=== PATIENT | female | born 1940 | race Caucasian/White ===

== ENCOUNTER → 2017-07-03 | Outpatient (CLI) | payer MEDICARE ==
--- NOTE | 2017-07-03 13:40 | MM ---
Reason for exam: additional evaluation requested from prior study. Last mammogram was performed 10 months ago. History: Patient is postmenopausal and has history of breast cancer at age 76. Family history of premenopausal breast cancer in mother. Malignant MG pre op needle loc LT of the left breast, September 13, 2016. Malignant US biopsy breast VAD LT of the left breast, August 29, 2016. Benign cyst aspiration of the right breast. Physical Findings: Nurse did not find any significant physical abnormalities on exam. MG 3D Diag Mammo W/Cad CASSIE Bilateral CC and MLO view(s) were taken. Prior study comparison: August 29, 2016, left breast MG diagnostic mammo LT wo CAD. August 16, 2016, left breast US breast workup limited LT. August 08, 2016, bilateral MG 3d screening mammo w/cad. October 14, 2014, bilateral MG screening mammo w CAD. September 13, 2013, bilateral digital screening mammo w/CAD. September 11, 2012, bilateral digital screening mammo w/CAD. There are scattered fibroglandular densities. Post surgical and post therapy changes in the left breast. No significant new findings when compared with previous films. These results were verbally communicated with the patient and result sheet given to the patient on 07/03/17. ASSESSMENT: Probably benign, BI-RAD 3 RECOMMENDATION: Follow-up diagnostic mammogram of the left breast in 6 months.
== END | disposition home or self-care (01) ==
LOC: RADMAMWWP 12:35
PROVIDERS: ATTEND Radiology Diagnostic Radiology
DX: Z08 Encounter for follow-up examination after completed treatment for malignant neoplasm (principal); Z85.3 Personal history of malignant neoplasm of breast
CPT/HCPCS: G0204; G0279

== ENCOUNTER → 2018-05-29 | Outpatient (CLI) | payer MEDICARE ==
--- NOTE | 2018-05-29 16:04 | MM ---
Reason for exam: additional evaluation requested from prior study. Last mammogram was performed 11 months ago. History: Patient is postmenopausal and has history of breast cancer at age 76. Family history of premenopausal breast cancer in mother. Malignant MG pre op needle loc LT of the left breast, September 13, 2016. Malignant US biopsy breast VAD LT of the left breast, August 29, 2016. Benign cyst aspiration of the right breast. Physical Findings: Nurse did not find any significant physical abnormalities on exam. MG 3D Diag Mammo W/Cad CASSIE Bilateral CC and MLO view(s) were taken. XCCM view(s) were taken of the right breast. Prior study comparison: July 03, 2017, bilateral MG 3d diag mammo w/cad CASSIE. August 29, 2016, left breast MG diagnostic mammo LT wo CAD. The breast tissue is heterogeneously dense. This may lower the sensitivity of mammography. Status post-op changes left breast. No significant new finding since prior exam. These results were verbally communicated with the patient and result sheet given to the patient on 05/29/18. ASSESSMENT: Benign, BI-RAD 2 RECOMMENDATION: Follow-up diagnostic mammogram of both breasts in 1 year.
== END | disposition home or self-care (01) ==
LOC: RADMAMWWP 14:44
PROVIDERS: ATTEND Radiology Diagnostic Radiology
DX: C50.912 Malignant neoplasm of unspecified site of left female breast (principal)
CPT/HCPCS: 77066; G0279; 77062

== ENCOUNTER → 2019-06-03 | Outpatient (CLI) | payer MEDICARE ==
--- NOTE | 2019-06-03 14:06 | MM ---
Reason for exam: additional evaluation requested from prior study. Last mammogram was performed 1 year ago. History: Patient is postmenopausal and has history of breast cancer at age 76. Family history of premenopausal breast cancer in mother. Malignant MG pre op needle loc LT of the left breast, September 13, 2016. Malignant US biopsy breast VAD LT of the left breast, August 29, 2016. Lumpectomy of the left breast, 2016. Radiation therapy of the left breast, 2016. Benign cyst aspiration of the right breast. Physical Findings: Nurse did not find any significant physical abnormalities on exam. MG 3D Diag Mammo W/Cad CASSIE Bilateral CC and MLO view(s) were taken. Prior study comparison: May 29, 2018, bilateral MG 3d diag mammo w/cad CASSIE. July 03, 2017, bilateral MG 3d diag mammo w/cad CASSIE. There are scattered fibroglandular densities. There is chronic nodularity bilaterally. Post surgical and post therapy change left breast. No significant new findings when compared with previous films. These results were verbally communicated with the patient and result sheet given to the patient on 06/03/19. ASSESSMENT: Benign, BI-RAD 2 RECOMMENDATION: Follow-up diagnostic mammogram of both breasts in 1 year.
--- NOTE | 2019-06-03 18:45 | XR ---
EXAMINATION TYPE: XR cervical spine comp DATE OF EXAM: 06/03/2019 COMPARISON: None HISTORY: 78 year-old female chronic pain TECHNIQUE: 5 views FINDINGS: Multilevel uncovertebral joint and facet arthropathy. Changes result in moderate bony neuroforaminal narrowing mid to lower cervical spine on the left and mild to moderate mid cervical spine on the righ t. Mild multilevel endplate spondylosis. Alignment is maintained. Normal odontoid view. Degenerative changes at the C1 dens articulation. No prevertebral soft tissue swelling. IMPRESSION: Moderate facet and uncovertebral joint arthropathy. Mild multilevel endplate spondylosis.
--- NOTE | 2019-06-03 18:47 | XR ---
EXAMINATION TYPE: XR shoulder complete BILAT DATE OF EXAM: 06/03/2019 COMPARISON: NONE HISTORY: 78 year-old female chronic pain TECHNIQUE: 3 views each side FINDINGS: Moderate degenerative joint space narrowing left AC joint and [id number] on the right with bila teral marginal spurring. On the right, there is prominent bony spurring and irregularity of the greater tuberosity with narrow ing of the subacromial space during abduction. No acute fracture, subluxation, or dislocation. Lesser degree of bony irregularity at the left greater tuberosity. No acute fracture, subluxation, di slocation. IMPRESSION: 1. 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 2. Right greater than left chronic rotator cuff tendinopathy. Narrowing of the right subacromial spac e during abduction may reflect underlying rotator cuff tear.
== END | disposition home or self-care (01) ==
LOC: RADMAMWWP 12:33
PROVIDERS: ATTEND Radiology Diagnostic Radiology
DX: M46.92 Unspecified inflammatory spondylopathy, cervical region (principal); M47.22 Other spondylosis with radiculopathy, cervical region; M19.012 Primary osteoarthritis, left shoulder; M19.011 Primary osteoarthritis, right shoulder; M25.811 Other specified joint disorders, right shoulder; R92.8 Other abnormal and inconclusive findings on diagnostic imaging of breast
CPT/HCPCS: 73030; 72050; 77066; G0279; 77062

== ENCOUNTER → 2020-08-10 | Outpatient (CLI) | payer MEDICARE ==
--- NOTE | 2020-08-10 18:42 | BD ---
EXAMINATION TYPE: Axial Bone Density DATE OF EXAM: 08/10/2020 COMPARISON: NONE CLINICAL HISTORY: Postmenopausal screening Height: 5 FT 2 IN Weight: 160 FRAX RISK QUESTIONS: Alcohol (3 or more units per day): NO Family History (Parent hip fracture): NO Glucocorticoids (More than 3mos): NO (Ex: prednisone, prednisolone, methylprednisolone, dexamethasone, and hydrocortisone). History of Fracture in Adulthood: NO Secondary Osteoporosis: 1. Type 1 Diabetes: NO 2. Hyperthyroidism: NO 3. Menopause before 45: UNSURE 4. Malnutrition: NO 5. Chronic liver disease: NO Rheumatoid Arthritis: NO Current Tobacco Use: NO RISK FACTORS HISTORY OF: Family History of Osteoporosis: NO Active: YES Diet low in dairy products/other sources of calcium: NO Postmenopausal woman: UNSURE Take estrogen and/or progesterone medications: NO Lost more than 2 inches in height since high school: NO Poor Health: NO MEDICATIONS: Additional Medications: BLOOD PRESSURE MEDS, H2O PILL, XANAX Additional History: EXAM MEASUREMENTS: Bone mineral densitometry was performed using the Easy Tem[employer] System. Bone mineral density as measured about the Lumbar spine is: ----- L1-L4(G/cm2): 1.204 T Score Values are as follows: ----- L2: -0.2 ----- L3: 0.3 ----- L4: 0.1 ----- L1-L4: 0.2 Bone mineral density has: DECREASED -0.4 % since study of: 2015 Bone mineral density about the R hip (g/cm2): 0.725 Bone mineral density about the L hip (g/cm2): 0.819 T Score values are as follows: -----R Neck: -2.3 -----L Neck: -1.6 -----R Total: -1.4 -----L Total: -0.5 Bone mineral density has: DECREASED -0.6 % since study of: 2015 IMPRESSION: Osteopenia (T Score between -2.5 and -1). There is slightly increased risk of fracture and the patient may be considered for treatment. Re-Screen 2-5 years. NOTE: T-SCORE=SD OF THE YOUNG ADULT MEAN.
--- NOTE | 2020-08-12 10:27 | MM ---
Reason for exam: screening (asymptomatic). Last mammogram was performed 1 year and 2 months ago. History: Patient is postmenopausal and has history of breast cancer at age 76. Family history of premenopausal breast cancer in mother. Malignant MG pre op needle loc LT of the left breast, September 13, 2016. Malignant US biopsy breast VAD LT of the left breast, August 29, 2016. Lumpectomy of the left breast, 2016. Radiation therapy of the left breast, 2016. Benign cyst aspiration of the right breast. Physical Findings: A clinical breast exam by your physician is recommended on an annual basis and results should be correlated with mammographic findings. MG 3D Screening Mammo W/Cad Bilateral CC and MLO view(s) were taken. Prior study comparison: June 03, 2019, bilateral MG 3d diag mammo w/cad CASSIE. May 29, 2018, bilateral MG 3d diag mammo w/cad CASSIE. The breast tissue is heterogeneously dense. This may lower the sensitivity of mammography. Finding: There are stable clips and architectural distortion in the middle, central position of the left breast consistent with known excisional changes. There is a chronic nodularity in the right breast. Asymmetric breast tissue right middle posterior outer aspect, stable. There is no discrete abnormality. ASSESSMENT: Benign, BI-RAD 2 RECOMMENDATION: Routine screening mammogram of both breasts in 1 year.
== END | disposition home or self-care (01) ==
LOC: RADMAMWWP 13:15
PROVIDERS: ATTEND Internal Medicine Geriatric Medicine
DX: Z12.31 Encounter for screening mammogram for malignant neoplasm of breast (principal); M81.0 Age-related osteoporosis without current pathological fracture; M85.80 Other specified disorders of bone density and structure, unspecified site
CPT/HCPCS: 77063; 77067; 77080

== ENCOUNTER → 2021-03-10 | Outpatient (CLI) | payer MEDICARE ==
--- NOTE | 2021-03-10 16:26 | XR ---
EXAMINATION TYPE: XR lumbar spine 2 or 3V DATE OF EXAM: 03/10/2021 CLINICAL HISTORY: Sciatica, right-sided lumbar SI joint pain for one month TECHNIQUE: Frontal, lateral, and oblique images of the lumbar spine are obtained. COMPARISON: 11/22/2012 FINDINGS: Osteopenia. 5 nonrib-bearing lumbar-type vertebral bodies. Sacroiliac joints are symmetric. Severe Atherosclerotic calcification of the abdominal aorta. There is accentuated lordosis of the levi mbar spine. Multiple tiny anterior osteophytes. No significant loss of vertebral body height. No sign ificant spondylolisthesis. Severe degenerative changes of the facets. IMPRESSION: 1. No significant loss of vertebral body height to suggest acute compression fracture. Multilevel deg enerative changes including facet sclerosis. Osteopenia.
== END | disposition home or self-care (01) ==
LOC: RADXRMAIN 14:19
PROVIDERS: ATTEND Internal Medicine Geriatric Medicine
DX: M47.816 Spondylosis without myelopathy or radiculopathy, lumbar region (principal); M85.80 Other specified disorders of bone density and structure, unspecified site
CPT/HCPCS: 72100

== ENCOUNTER → 2022-02-16 | Outpatient (CLI) | payer MEDICARE ==
--- NOTE | 2022-02-16 19:52 | XR ---
EXAMINATION TYPE: XR Hip Bilateral Complete DATE OF EXAM: 02/16/2022 COMPARISON: None HISTORY: Pain left hip TECHNIQUE: Bilateral hips 2 views each. FINDINGS: Femoral heads articulate with the acetabulum. Some mild narrowing of the left hip joint spa ce may be present. No acute fractures are evident. No dislocations. IMPRESSION: 1. Mild degenerative changes left hip
== END | disposition home or self-care (01) ==
LOC: RADXRMAIN 14:02
PROVIDERS: ATTEND Internal Medicine Geriatric Medicine
DX: M16.12 Unilateral primary osteoarthritis, left hip (principal)
CPT/HCPCS: 73521

== ENCOUNTER 2022-02-17 08:47 | Inpatient (IN) | payer MEDICARE ==
[2022-02-17] MEDS ORDERED: SODIUM CHLORIDE 0.9% 1,000 ML IV STA (09:22)
[2022-02-17] MEDS ORDERED: ONDANSETRON 4 MG/2 ML VIAL IVP STA (09:24)
--- NOTE | 2022-02-17 09:27 | ED ---
General Adult HPI - General Chief complaint: Nausea/Vomiting/Diarrhea Stated complaint: Accidental Overdose Codeine Time Seen by Provider: 02/17/22 08:55 Source: patient, RN notes reviewed, old records reviewed Mode of arrival: EMS Limitations: no limitations - History of Present Illness Initial comments: This is an 81-year-old female presents emergency Department with a past medical history significant for high blood pressure. Patient was also given some Tylenol with Codeine yesterday because of some hip pain she took her first dose at 4:00 in the morning and then didn't feel well she called her grand[facility] and she was unresponsive and her states she was unresponsive for a fair amount of time and EMS came and brought her to the emergency department. EMS stated they did give her Narcan it seemed to bring her around however when I was in the room she became very nauseated her heart rate slowed down and she passed out again. Patient was unresponsive for about 30 seconds and she immediately came around after that and was alert and oriented. Patient denies any chest pain or abdominal pain patient denies any palpitations per patient denies any recent fever chills or cough. Patient denies any back pain. - Related Data Home Medications Medication Instructions Recorded Confirmed Multivit-Min/FA/Lycopen/Lutein 1 tab PO DAILY 09/12/15 02/17/22 [Centrum Silver Tablet] Omeprazole [PriLOSEC] 20 mg PO AC-BRKFST 09/12/15 02/17/22 Metoprolol Tartrate [Lopressor] 25 mg PO TID 05/24/16 02/17/22 ALPRAZolam [Xanax] 0.25 mg PO TID 02/17/22 02/17/22 Acetaminophen-Codeine 300-30mg 1 tab PO Q6H PRN 02/17/22 02/17/22 [Tylenol w/codeine #3] Atorvastatin [Lipitor] 10 mg PO DAILY 02/17/22 02/17/22 Baclofen [Lioresal] 10 mg PO BID PRN 02/17/22 02/17/22 Furosemide [Lasix] 40 mg PO DAILY 02/17/22 02/17/22 Allergies Allergy/AdvReac Type Severity Reaction Status Date / Time codeine AdvReac Vomiting Verified 02/17/22 12:04 Review of Systems ROS Statement: Those systems with pertinent positive or pertinent negative responses have been documented in the HPI. ROS Other: All systems not noted in ROS Statement are negative. Past Medical History Past Medical History: Cancer, Fibromyalgia, GERD/Reflux, Hypertension, Os teoarthritis (OA) Additional Past Medical History / Comment(s): varicose veins, breast cancer History of Any Multi-Drug Resistant Organisms: None Reported Past Surgical History: Appendectomy, Hysterectomy, Tonsillectomy Additional Past Surgical History / Comment(s): benign TUMOR FROM STOMACH REMOVE D. misty cataracts Past Anesthesia/Blood Transfusion Reactions: No Reported Reaction Past Psychological History: Anxiety Smoking Status: Former smoker Past Alcohol Use History: None Reported Past Drug Use History: None Reported - Past Family History Mother Family Medical History: Cancer Son(s) Family Medical History: Cancer General Exam - General Exam Comments Initial Comments: GENERAL: Patient is well-developed and well-nourished. Patient is nontoxic and well- hydrated and is in mild distress. ENT: Neck is soft and supple. No significant lymphadenopathy is noted. Oropharynx is clear. Moist mucous membranes. Neck has full range of motion without eliciting any pain. EYES: The sclera were anicteric and conjunctiva were pink and moist. Extraocular movements were intact and pupils were equal round and reactive to light. Eyelids were unremarkable. PULMONARY: Unlabored respirations. Good breath sounds bilaterally. No audible rales rhonchi or wheezing was noted. CARDIOVASCULAR: There is a regular rate and rhythm without any murmurs gallops or rubs. ABDOMEN: Soft and nontender with normal bowel sounds. SKIN: Skin is clear with no lesions or rashes and otherwise unremarkable. NEUROLOGIC: Patient is alert and oriented x3. Cranial nerves II through XII are grossly intact. Motor and sensory are also intact. Normal speech, volume and content. Symmetrical smile. MUSCULOSKELETAL: Normal extremities with adequate strength and full range of motion. LYMPHATICS: No significant lymphadenopathy is noted PSYCHIATRIC: Normal psychiatric evaluation. Limitations: no limitations Course Vital Signs 02/17/22 02/17/22 02/17/22 08:53 09:41 10:00 Temperature 98.2 F Pulse Rate 65 55 L 87 Respiratory 15 15 16 Rate Blood Pressure 192/75 154/62 154/125 O2 Sat by Pulse 95 98 96 Oximetry 02/17/22 02/17/22 02/17/22 11:00 11:10 12:28 Temperature Pulse Rate 77 75 69 Respiratory 16 20 Rate Blood Pressure 178/90 118/78 176/79 O2 Sat by Pulse 96 98 Oximetry Medical Decision Making - Medical Decision Making My was in the room patient vasovagal and heart rate went down into the 20s. Patient's EKG shows sinus rhythm at 64 bpm AR interval is 181 QRS is 96 QT interval 429 QTC is 439. Patient's EKG shows no ST segment elevation or depression. Patient had multiple episodes in the emergency department where she had at least a 10 second episode of asystole and then slowly her heart rate would speed up and come back to the 70s. At one point she took down into the 20s. I gave her atropine and immediately responded. I spoke with cardiology he agreed to consult on the patient. I spoke with Dr. Rodriguez he agreed to admit the patient admitted the patient wrote admitting orders. - Lab Data Result diagrams: 02/17/22 09:29 02/17/22 09:29 Lab Results 02/17/22 02/17/22 02/17/22 Range/Units 09:29 09:29 09:29 WBC 9.1 (3.8-10.6) k/uL RBC 3.96 (3.80-5.40) m/uL Hgb 12.7 (11.4-16.0) gm/dL Hct 39.1 (34.0-46.0) % MCV 98.7 (80.0-100.0) fL MCH 32.2 (25.0-35.0) pg MCHC 32.6 (31.0-37.0) g/dL RDW 12.0 (11.5-15.5) % Plt Count 236 (150-450) k/uL MPV 8.1 Neutrophils % 74 % Lymphocytes % 17 % Monocytes % 5 % Eosinophils % 1 % Basophils % 1 % Neutrophils # 6.8 (1.3-7.7) k/uL Lymphocytes # 1.5 (1.0-4.8) k/uL Monocytes # 0.5 (0-1.0) k/uL Eosinophils # 0.1 (0-0.7) k/uL Basophils # 0.1 (0-0.2) k/uL PT 9.9 (9.0-12.0) sec INR 0.9 (<1.2) APTT 23.0 (22.0-30.0) sec D-Dimer 0.36 (<0.60) mg/L FEU Sodium 139 (137-145) mmol/L Potassium 3.6 (3.5-5.1) mmol/L Chloride 104 (98-107) mmol/L Carbon Dioxide 27 (22-30) mmol/L Anion Gap 8 mmol/L BUN 19 H (7-17) mg/dL Creatinine 0.81 (0.52-1.04) mg/dL Est GFR (CKD-EPI)AfAm 80 (>60 ml/min/1.73 sqM) Est GFR (CKD-EPI)NonAf 69 (>60 ml/min/1.73 sqM) Glucose 154 H (74-99) mg/dL Calcium 8.8 (8.4-10.2) mg/dL Magnesium 1.9 (1.6-2.3) mg/dL Total Bilirubin 0.7 (0.2-1.3) mg/dL AST 37 H (14-36) U/L ALT 26 (4-34) U/L Alkaline Phosphatase 67 (38-126) U/L Troponin I (0.000-0.034) ng/mL NT-Pro-B Natriuret Pep pg/mL Total Protein 7.2 (6.3-8.2) g/dL Albumin 4.3 (3.5-5.0) g/dL 02/17/22 02/17/22 Range/Units 09:29 09:29 WBC (3.8-10.6) k/uL RBC (3.80-5.40) m/uL Hgb (11.4-16.0) gm/dL Hct (34.0-46.0) % MCV (80.0-100.0) fL MCH (25.0-35.0) pg MCHC (31.0-37.0) g/dL RDW (11.5-15.5) % Plt Count (150-450) k/uL MPV Neutrophils % % Lymphocytes % % Monocytes % % Eosinophils % % Basophils % % Neutrophils # (1.3-7.7) k/uL Lymphocytes # (1.0-4.8) k/uL Monocytes # (0-1.0) k/uL Eosinophils # (0-0.7) k/uL Basophils # (0-0.2) k/uL PT (9.0-12.0) sec INR (<1.2) APTT (22.0-30.0) sec D-Dimer (<0.60) mg/L FEU Sodium (137-145) mmol/L Potassium (3.5-5.1) mmol/L Chloride (98-107) mmol/L Carbon Dioxide (22-30) mmol/L Anion Gap mmol/L BUN (7-17) mg/dL Creatinine (0.52-1.04) mg/dL Est GFR (CKD-EPI)AfAm (>60 ml/min/1.73 sqM) Est GFR (CKD-EPI)NonAf (>60 ml/min/1.73 sqM) Glucose (74-99) mg/dL Calcium (8.4-10.2) mg/dL Magnesium (1.6-2.3) mg/dL Total Bilirubin (0.2-1.3) mg/dL AST (14-36) U/L ALT (4-34) U/L Alkaline Phosphatase (38-126) U/L Troponin I <0.012 (0.000-0.034) ng/mL NT-Pro-B Natriuret Pep 85 pg/mL Total Protein (6.3-8.2) g/dL Albumin (3.5-5.0) g/dL Critical Care Time Critical Care Time: Yes Total Critical Care Time: 35 Disposition Clinical Impression: Bradycardia, Asystole, Nausea & vomiting, Urinary retention Disposition: ADMITTED IP TO THIS [facility] Time of Disposition: 11:42
[2022-02-17 09:44] LABS: Basophils # (A) 0.1 k/uL (0-0.2); Basophils % (A) 1 %; Eosinophils # (A) 0.1 k/uL (0-0.7); Eosinophils % (A) 1 %; HCT 39.1 % (34.0-46.0); HGB 12.7 gm/dL (11.4-16.0); Lymphocytes # (A) 1.5 k/uL (1.0-4.8); Lymphocytes % (A) 17 %; MCH 32.2 pg (25.0-35.0); MCHC 32.6 g/dL (31.0-37.0); MCV 98.7 fL (80.0-100.0); Mean Platelet Volume 8.1; Monocytes # (A) 0.5 k/uL (0-1.0); Monocytes % (A) 5 %; Neutrophils # (A) 6.8 k/uL (1.3-7.7); Neutrophils % (A) 74 %; Platelet Count 236 k/uL (150-450); RBC 3.96 m/uL (3.80-5.40); WBC 9.1 k/uL (3.8-10.6)
[2022-02-17] MEDS ORDERED: ATROPINE SULFATE 0.1 MG/ML 10ML SYRINGE IV STA (09:59)
[2022-02-17 10:03] LABS: INR 0.9 (<1.2); Prothrombin Time 9.9 sec (9.0-12.0)
[2022-02-17 10:06] LABS: Albumin 4.3 g/dL (3.5-5.0); Calcium 8.8 mg/dL (8.4-10.2); Magnesium 1.9 mg/dL (1.6-2.3); Potassium 3.6 mmol/L (3.5-5.1); Total Bilirubin 0.7 mg/dL (0.2-1.3); Total Protein 7.2 g/dL (6.3-8.2)
--- NOTE | 2022-02-17 11:21 | XR ---
EXAMINATION TYPE: XR chest 1V portable DATE OF EXAM: 02/17/2022 COMPARISON: Chest x-ray January 16, 2016 HISTORY: Shortness of breath. TECHNIQUE: Single AP portable frontal upright view of the chest is obtained. FINDINGS: There is chronic parenchymal change bilaterally without suspicious focal air space opacity , pleural effusion, or pneumothorax seen. The cardiac silhouette size is stable and mildly enlarged with atherosclerotic change thoracic aorta. The osseous structures remain demineralized. IMPRESSION: Chronic changes and mild cardiomegaly without acute pulmonary process.
[2022-02-17] MEDS ORDERED: NITROGLYCERIN SL TABS 0.4 MG TAB SUBLINGUAL PRN (11:44)
[2022-02-17] MEDS ORDERED: ALPRAZolam 0.25 MG TAB PO PRN (11:46)
[2022-02-17 13:02] LABS: Appearance,Urine Clear (Clear); Bilirubin,Urine Negative (Negative); Blood,Urine Negative (Negative); Color,Urine Light Yellow; Glucose,Urine (UA) Negative (Negative); Ketones,Urine Negative (Negative); Leukocyte Esterase,Urine Negative (Negative); Nitrite,Urine Negative (Negative); Protein,Urine Negative (Negative); Specific Gravity,Urine 1.007 (1.001-1.035); Urobilinogen,Urine <2.0 mg/dL (<2.0)
[2022-02-17] MEDS ORDERED: hydrALAZINE HCL 25 MG TAB PO PRN (19:36)
--- NOTE | 2022-02-17 19:46 | P.HPIM ---
History of Present Illness H&P Date: 02/17/22 Chief Complaint: unresponsive and asystole HISTORY OF PRESENT ILLNESS 81-year-old female one of my office patient with known for long time with past medical history of breast cancer is known to have history of hypertension and atherosclerotic heart disease also known to have history of mild anxiety attack and severe GERD who was in the office yesterday for severe right hip pain was diagnosed with high suspicion of avascular necrosis, patient apparently was started on a smaller dose of Tylenol 3 along with baclofen no injection was done. Patient had called her granddaughter this morning and was more slurred not feeling well at the time and apparently she drop her phone call [facility] through. She dialed the phone again in 20 minutes and was not feeling well at the time. The granddaughter drove to see her 1 found her unresponsive she called 911 and EMS came in and work on patient for short period of time then decided to transfer her to the emergency room. On the way patient had nausea and vomited one time she was giving Narcan on the way to the emergency room apparently had one episode of asystole last for a few seconds. Was seen and evaluated the emergency department laboratory value showed normal CK with troponin, normal CBC CMP with normal d-dimer as well. Her chest x-ray showed chronic changes and mild cardiomegaly without any acute process. In between her episodes are EKG showed sinus rhythm with nonspecific abnormality. The patient had another episode of asystole and was giving some atropine and admitted to the hospital did not require any electric shock or any resuscitation. REVIEW OF SYSTEMS Constitutional: No fever, no chills, no night sweats. No weight change. No weakness, fatigue or lethargy. No daytime sleepiness. EENT: No headache. No blurred vision or double vision, no loss of vision. No loss of Hearing, no ringing in the ears, no dizziness. No nasal drainage or congestion. No epistaxis. No sore throat. Lungs: No shortness of breath, cough, no sputum production. No wheezing. Cardiovascular: Had slight dyspnea and shortness of breath arrhythmia asystole and mild lightheadedness and dizziness. Abdominal: No abdominal pain. No nausea, vomiting. No diarrhea. No constipation. No bloody or tarry stools.. No loss of appetite. Genitourinary: No dysuria, increased frequency, urgency. No urinary retention. Musculoskeletal: No myalgias. No muscle weakness, no gait dysfunction, no frequent falls. No back pain. No neck pain. Still have lumbar spine pain a long with right hip pain. Integumentary: No wounds, no lesions. No rash or pruritus. No unusual br uising. No change in hair or nails. Neurologic: Loss of consciousness with no syncope no seizure activity. Psychiatric: No depression. No anxiety. No mood swings. Endocrine: No abnormal blood sugars. No weight change. No excessive sweating or thirst. No cold intolerance. SOCIAL HISTORY FAMILY HISTORY PHYSICAL EXAMINATION Gen: This is a well-developed laying in bed in no acute respiratory distress. HEENT: Head is atraumatic, normocephalic. Pupils equal, round. Sclerae is anicteric. NECK: Supple. No JVD. No lymphadenopathy. No thyromegaly. LUNGS: Clear to auscultation. No wheezes or rhonchi. No intercostal retractions. HEART: Regular rate and rhythm. No murmur. ABDOMEN: Soft. Bowel sounds are present. No masses. No tenderness. EXTREMITIES: No pedal edema. No calf tenderness. Slight discomfort in the right hip area. NEUROLOGICAL: Patient is awake, alert and oriented x3. Cranial nerves 2 through 12 are grossly intact. Back: Slight discomfort the lumbar spine area with significant scoliosis and kyphosis. ASSESSMENT AND PLAN 1. Unresponsive and asystole: Patient was giving atropine, was giving Narcan as well no further episodes she had total of 3 episode of asystole not totally clear etiology could be reaction to codeine at this point which is on any medications is taking found to be slight extreme at the time. Will DC medication completely, patient will be watch on telemetry monitor we'll consult cardiology she might require some sort of short and supervisor intermediates heart monitor for better view whether patient will require pacemaker not knowing that she is on beta yaya for her blood pressure which was an extremely difficult decision at the time which is only taking had work patient did not do well with multiple products with calcium channel yaya, Reagan, ARB and clonidine. 2 severe arrhythmia and asystole: Patient might require pacemaker will be study limited more carefully at this point, cardiology consultation be done, echocardiogram will be done and try to stop her beta yaya for now. 3 hypertension: Patient has been on metoprolol titrate 25 g 3 times a day which has worked for her better than anything else the past patient would not be able to take metoprolol for the next 24-48 hours. 4 hyperlipidemia: Has been on Lipitor 10 mg a day. 5 chronic edema: Has been on Lasix 40 mg daily. 6 severe GERD: Has been on Prilosec. 7 history of breast cancer: Has been in remission at this point. 8 severe lower back pain and hip pain, her x-ray of the hip showed mild arthritis only, thoracic and lumbar x-ray will be done. 9 GI prophylaxis: Patient will be on Pepcid. 10 DVT prophylaxis: Patient will have early mobilization and knee-high CHARLES hose. CODE STATUS: Full code. Patient will be admitted to the hospital for a minimum of 2 night stay. 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 misty cataracts Past Anesthesia/Blood Transfusion Reactions: No Reported Reaction Past Psychological History: Anxiety Smoking Status: Former smoker Past Alcohol Use History: None Reported Past Drug Use History: None Reported - Past Family History Mother Family Medical History: Cancer Son(s) Family Medical History: Cancer Medications and Allergies Home Medications Medication Instructions Recorded Confirmed Type Multivit-Min/FA/Lycopen/Lutein 1 tab PO DAILY 09/12/15 02/17/22 History [Centrum Silver Tablet] Omeprazole [PriLOSEC] 20 mg PO AC-BRKFST 09/12/15 02/17/22 History Metoprolol Tartrate [Lopressor] 25 mg PO TID 05/24/16 02/17/22 History ALPRAZolam [Xanax] 0.25 mg PO TID 02/17/22 02/17/22 History Acetaminophen-Codeine 300-30mg 1 tab PO Q6H PRN 02/17/22 02/17/22 History [Tylenol w/codeine #3] Atorvastatin [Lipitor] 10 mg PO DAILY 02/17/22 02/17/22 History Baclofen [Lioresal] 10 mg PO BID PRN 02/17/22 02/17/22 History Furosemide [Lasix] 40 mg PO DAILY 02/17/22 02/17/22 History Allergies Allergy/AdvReac Type Severity Reaction Status Date / Time codeine AdvReac Vomiting Verified 02/17/22 12:04 Physical Exam Vitals: Vital Signs Temp Pulse Resp BP Pulse Ox 02/17/22 16:07 98 F 70 20 169/76 98 02/17/22 14:31 67 95 02/17/22 13:44 97.8 F 68 18 162/79 98 02/17/22 12:28 69 20 176/79 98 02/17/22 11:10 75 118/78 02/17/22 11:00 77 16 178/90 96 02/17/22 10:00 87 16 154/125 96 02/17/22 09:41 55 L 15 154/62 98 02/17/22 08:53 98.2 F 65 15 192/75 95 Intake and Output 02/17/22 02/17/22 02/17/22 06:59 14:59 22:59 Output Total 550 Balance -550 Output: Urine 550 Uretheral (Monge) 550 Other: Weight 68.039 kg Results CBC & Chem 7: 02/17/22 09:29 02/17/22 09:29 Labs: Abnormal Lab Results - Last 24 Hours (Table) 02/17/22 Range/Units 09:29 BUN 19 H (7-17) mg/dL Glucose 154 H (74-99) mg/dL AST 37 H (14-36) U/L
[2022-02-17] MEDS: ALPRAZolam 0.25 MG TAB PO SCH (21:59)
[2022-02-18] MEDS: PANTOPRAZOLE 40 MG TABLET PO SCH (06:34)
[2022-02-18 08:04] LABS: HCT 37.3 % (34.0-46.0); HGB 12.1 gm/dL (11.4-16.0); MCH 32.5 pg (25.0-35.0); MCHC 32.6 g/dL (31.0-37.0); MCV 99.8 fL (80.0-100.0); Mean Platelet Volume 8.1; Platelet Count 249 k/uL (150-450); RBC 3.73 m/uL (3.80-5.40); RDW 12.7 % (11.5-15.5); WBC 7.4 k/uL (3.8-10.6)
[2022-02-18] MEDS: ATORVASTATIN 10 MG TAB PO SCH (08:11)
[2022-02-18 08:12] LABS: ALT 21 U/L (4-34); AST 29 U/L (14-36); African American GFR (CKD) 77 (>60 ml/min/1.73 sqM); Albumin 3.9 g/dL (3.5-5.0); Alkaline Phosphatase 64 U/L (38-126); Anion Gap 6 mmol/L; Blood Urea Nitrogen 14 mg/dL (7-17); Calcium 9.2 mg/dL (8.4-10.2); Carbon Dioxide 32 mmol/L (22-30); Chloride 100 mmol/L (98-107); Glucose 126 mg/dL (74-99); Non-African American GFR(CKD) 67 (>60 ml/min/1.73 sqM); Potassium 3.5 mmol/L (3.5-5.1); Sodium 138 mmol/L (137-145); Total Bilirubin 0.8 mg/dL (0.2-1.3); Total Protein 6.5 g/dL (6.3-8.2)
[2022-02-18] MEDS: FUROSEMIDE 40 MG TAB PO SCH (08:12)
[2022-02-18] MEDS: ASPIRIN 81 MG PO SCH (08:12)
[2022-02-18] MEDS: FAMOTIDINE 20 MG TAB PO SCH (08:12)
[2022-02-18] MEDS: ALPRAZolam 0.25 MG TAB PO SCH ×3 (08:12→23:16)
[2022-02-18] MEDS ORDERED: Potassium Replacement Protocol 1 EACH MISC MISCELLANE PRN (08:20)
[2022-02-18] MEDS ORDERED: ASPIRIN 325 MG TAB PO SCH (09:00)
--- NOTE | 2022-02-18 09:29 | XR ---
EXAMINATION TYPE: XR lumbar spine 2 or 3V DATE OF EXAM: 02/18/2022 CLINICAL HISTORY: pain TECHNIQUE: Three views of the lumbar spine are submitted. COMPARISON: None. FINDINGS: There are 5 lumbar type vertebral bodies identified. The lumbar spine shows satisfactory alignment w ithout evidence of acute fracture or dislocation. Vertebral body heights are within normal limits. Severe degenerative disc space narrowing L4-5 and L5-S1. Severe facet joint arthropathy. Ventral spon dylosis. The overlying soft tissue appears unremarkable. IMPRESSION: No acute fracture or dislocation is seen in the lumbar spine. ICD 10 NO FRACTURE, INITIAL EVALUATION
--- NOTE | 2022-02-18 09:30 | XR ---
EXAMINATION TYPE: XR thoracic spine 2V DATE OF EXAM: 02/18/2022 CLINICAL HISTORY: pain TECHNIQUE: Frontal, lateral, and swimmer's view of thoracic spine are obtained. COMPARISON: None. FINDINGS: Thoracic spine show satisfactory alignment without evidence of acute fracture or dislocatio n. Vertebral body heights are preserved. Moderate multilevel degenerative disc space narrowing and s pondylosis. Visualized ribs are unremarkable. IMPRESSION: No acute fracture or dislocation is seen in the thoracic spine. ICD 10 NO FRACTURE, INIT IAL EVALUATION
--- NOTE | 2022-02-18 09:32 | CT ---
EXAMINATION TYPE: CT brain wo con DATE OF EXAM: 02/18/2022 COMPARISON: None INDICATION: Headache, tinnitus and history of breast cancer DLP: 1076.4 mGycm, Automated exposure control for dose reduction was used. CONTRAST: None CT of the brain is performed utilizing 3 mm thick sections through the posterior fossa and 3 mm thick sections through the remaining calvarium. Study is performed within 24 hours of arrival to the hosp [facility]. No abnormal hyperdensity is present to suggest an acute intracranial hemorrhage. No mass lesion is evident. No suspicious changes to suggest metastatic disease noncontrast study. No acute infarcts are evident. There is diffuse periventricular white matter hypodensity, likely on t he basis of chronic white matter ischemic changes. Ventricles and sulci are prominent for the patient age. Paranasal sinuses and mastoid air cells within the [id number] are clear. IMPRESSIONS: 1. Atrophy with chronic appearing periventricular white matter ischemic-type changes.
--- NOTE | 2022-02-18 09:39 | P.PN ---
Subjective Progress Note Date: 02/18/22 HISTORY OF PRESENT ILLNESS 81-year-old female one of my office patient with known for long time with past medical history of breast cancer is known to have history of hypertension and atherosclerotic heart disease also known to have history of mild anxiety attack and severe GERD who was in the office yesterday for severe right hip pain was diagnosed with high suspicion of avascular necrosis, patient apparently was started on a smaller dose of Tylenol 3 along with baclofen no injection was done. Patient had called her granddaughter this morning and was more slurred not feeli ng well at the time and apparently she drop her phone call [facility] through. She dialed the phone again in 20 minutes and was not feeling well at the time. The granddaughter drove to see her 1 found her unresponsive she called 911 and EMS came in and work on patient for short period of time then decided to transfer her to the emergency room. On the way patient had nausea and vomited one time she was giving Narcan on the way to the emergency room apparently had one episode of asystole last for a few seconds. Was seen and evaluated the emergency department laboratory value showed normal CK with troponin, normal CBC CMP with normal d-dimer as well. Her chest x-ray showed chronic changes and mild cardiomegaly without any acute process. In between her episodes are EKG showed sinus rhythm with nonspecific abnormality. The patient had another episode of asystole and was giving some atropine and admitted to the hospital did not require any electric shock or any resuscitation. 6: The patient had echocardiogram done this morning and report is pending. She has been seen by Dr. Garcia as well. Patient is complaining of headache type buzzing bees and her head and CAT scan of the brain will be ordered to rule out any metastatic disease with history of breast cancer. Patient has been afebrile, heart rate in the 70s, blood pressure 137/61, pulse ox 90% on room air. Repeat CBC unremarkable. CO2 32, blood sugar 126 otherwise CMP unremarkable. Troponins are negative on 3 draws. TSH 0.122 and free T4 is pending. Urinalysis was negative. Patient is that no further episodes and f amily at bedside, all questions been answered. REVIEW OF SYSTEMS Constitutional: No fever, no chills, no night sweats. No weight change. No weakness, fatigue or lethargy. No daytime sleepiness. EENT: No headache. No blurred vision or double vision, no loss of vision. No loss of Hearing, no ringing in the ears, no dizziness. No nasal drainage or congestion. No epistaxis. No sore throat. Lungs: No shortness of breath, cough, no sputum production. No wheezing. Cardiovascular: Had slight dyspnea and shortness of breath arrhythmia asystole and mild lightheadedness and dizziness. Abdominal: No abdominal pain. No nausea, vomiting. No diarrhea. No constipation. No bloody or tarry stools.. No loss of appetite. Genitourinary: No dysuria, increased frequency, urgency. No urinary retention. Musculoskeletal: No myalgias. No muscle weakness, no gait dysfunction, no frequent falls. No back pain. No neck pain. Still have lumbar spine pain along with right hip pain. Integumentary: No wounds, no lesions. No rash or pruritus. No unusual bruising. No change in hair or nails. Neurologic: Loss of consciousness with no syncope no seizure activity. Psychiatric: No depression. No anxiety. No mood swings. Endocrine: No abnormal blood sugars. No weight change. No excessive sweating or thirst. No cold intolerance. PHYSICAL EXAMINATION Gen: This is a well-developed laying in bed in no acute respiratory distress. HEENT: Head is atraumatic, normocephalic. Pupils equal, round. Sclerae is anicteric. NECK: Supple. No JVD. No lymphadenopathy. No thyromegaly. LUNGS: Clear to auscultation. No wheezes or rhonchi. No intercostal retractions. HEART: Regular rate and rhythm. No murmur. ABDOMEN: Soft. Bowel sounds are present. No masses. No tenderness. EXTREMITIES: No pedal edema. No calf tenderness. Slight discomfort in the right hip area. NEUROLOGICAL: Patient is awake, alert and oriented x3. Cranial nerves 2 through 12 are grossly intact. Back: Slight discomfort the lumbar spine area with significant scoliosis and kyphosis. ASSESSMENT AND PLAN 1. Unresponsive and asystole: Patient was giving atropine, was giving Narcan as well no further episodes she had total of 3 episode of asystole not totally clear etiology could be reaction to codeine at this point which is on any medications is taking found to be slight extreme at the time. Continue cardiac monitoring, cardiology consult, patient may require pacemaker, off metoprolol and unable to tolerate and previously tried on multiple products with calcium channel yaya, Reagan, ARB and clonidine. 2 severe arrhythmia and asystole: Patient might require pacemaker will be study limited more carefully at this point, cardiology consultation be done, echocardiogram will be done and try to stop her beta yaya for now. 3 hypertension: Patient has been on metoprolol titrate 25 g 3 times a day which has worked for her better than anything else the past patient would not be able to take metoprolol for the next 24-48 hours, on hold for asystole. 4 hyperlipidemia: Has been on Lipitor 10 mg a day. 5 chronic edema: Has been on Lasix 40 mg daily. 6 severe GERD: Has been on Prilosec. 7 history of breast cancer: Has been in remission at this point. 8 severe lower back pain and hip pain, her x-ray of the hip showed mild art hritis only, thoracic and lumbar x-ray will be done. 9 GI prophylaxis: Patient will be on Pepcid. 10 DVT prophylaxis: Patient will have early mobilization and knee-high CHARLES hose. CODE STATUS: Full code. DISCHARGE PLAN Most likely return home. PT and OT consult added. Impression and plan of care have been directed as dictated by the signing physician. Xochilt Craft nurse practitioner acting as scribe for signing physician. Objective - Vital Signs Vital signs: Vital Signs Temp 97.8 F 02/18/22 04:00 Pulse 70 02/18/22 04:00 Resp 18 02/18/22 04:00 BP 150/66 02/18/22 04:00 Pulse Ox 94 L 02/18/22 04:00 Intake & Output 02/17/22 02/18/22 02/18/22 18:59 06:59 18:59 Intake Total 360 Output Total 550 850 Balance -550 -490 Weight 68.039 kg 68.039 kg Intake: Oral 360 Output: Urine 550 850 Uretheral (Monge) 550 Other: Voiding Method Indwelling Catheter - Labs CBC & Chem 7: 02/18/22 07:30 02/18/22 07:30 Labs: Abnormal Lab Results - Last 24 Hours (Table) 02/17/22 Range/Units 09:29 BUN 19 H (7-17) mg/dL Glucose 154 H (74-99) mg/dL AST 37 H (14-36) U/L
[2022-02-18] MEDS: POTASSIUM CHLORIDE ER 20 MEQ TAB.ER PO SCH ×3 (09:47→16:18)
--- NOTE | 2022-02-18 09:48 | P.CRDCN ---
History of Present Illness History of present illness: HISTORY OF PRESENTING ILLNESS This is a pleasant 81-year-old female past medical history significant for hypertension, DVT, breast cancer, dyslipidemia, GERD. She used to follow in this office with Dr. Garcia, last seen in 2018. We have been asked to see in consultation for bradycardia and asytole. Patient presents emergency department with a syncope episode. She states yesterday, "her whole body went numb". She texted her grand daughter that her whole body felt numb, she states she sat in her chair and believes she passed out. She eventually came to, unsure how long this episode lasted, was able to call her grand daughter. EMS was called. Patient was brought to the hospital. She has been having nausea and vomiting since yesterday, which has improved. No chest pain, no shortness of breath, palpitations. Emergency Department patient apparently had episodes of nausea and vomiting and was noted to be bradycardic. She was given Narcan on the way to the ER. She had an episode of bradycardia then asystole for brief few seconds per the ER, these episodes happened a total of 3 times. She received 1 dose of atropine. DIAGNOSTICS EKG reveals sinus rhythm, heart rate 64, nonspecific ST abnormalities. Telemetry tracings indicate patient has been in sinus mechanism with heart rates in the 60s to 70s. No further episodes on telemetry. Brain CT revealed atrophy with chronic appearing periventricular white matter ischemic type changes. Lumbar spine and thoracic spine with no evidence of acute fracture or dislocation Chest xray no acute cardiopulmonary process Laboratory reviewed, troponin negative 3, proBNP 85, d-dimer negative, CBC unremarkable, sodium 138, potassium 3.5, BUN 14, serum creatinine 0.83, magnesium 1.9 Current home medications include atorvastatin 10 mg daily, Lasix 40 mg daily, metoprolol titrate 25 mg 3 times a day Most recent echo in the office here 03/2018 revealed an EF of 55%, mild concentric hypertrophy, mild aortic regurgitation, mild mitral regurgitation, trace tricuspid regurgitation, mild pulmonic regurgitation Most recent stress Echo test in 2014 was negative REVIEW OF SYSTEMS At the time of my exam: CONSTITUTIONAL: Denies fever or chills. CARDIOVASCULAR: Denies chest pain, shortness of breath, orthopnea, PND or palpitations. RESPIRATORY: Denies cough. GASTROINTESTINAL: Denies abdominal pain, diarrhea, constipation, nausea or vomi ting. MUSCULOSKELETAL: Denies myalgias. NEUROLOGIC: Denies numbness, tingling, headacbe or weakness. ENDOCRINE: Denies fatigue, weight change, polydipsia or polyurina. GENITOURINARY: Denies burning, hematuria or urgency with micturation. HEMATOLOGIC: Denies history of anemia or bleeding. PHYSICAL EXAMINATION Blood pressure 137/61, heart rate 71, afebrile, oxygen saturation is 98% on 2 L CONSTITUTIONAL: No apparent distress. HEENT: Head is normocephalic. Pupils are equal, round. Sclerae anicteric. Mucous membranes of the mouth are moist. No JVD. No carotid bruit. CHEST EXAMINATION: Lungs are clear to auscultation. No chest wall tenderness is noted on palpation or with deep breathing. HEART EXAMINATION: Regular rate and rhythm. S1, S2 heard. No murmurs, gallops or rub. ABDOMEN: Soft, nontender. Positive bowel sounds. EXTREMITIES: 2+ peripheral pulses, no lower extremity edema and no calf tenderness. NEUROLOGIC EXAMINATION: Patient is awake, alert and oriented x3. ASSESSMENT Syncopal episode, possibly vasovagal Nausea, Vomiting Bradycardia with 3 episodes of brief asystole in the emergency department, was given atropine in ER, no further episodes or bradycardia noted on telemetry History of hypertension Dyslipidemia History of breast cancer GERD PLAN Obtain 2D echocardiogram and doppler study to assess cardiac structure and function. Continue telemetry Check TSH Hold AV deven blocking agents Patient will benefit from an event monitor, we will arrange this as an outpa tient in the office once patient is discharged and follows up in the office. Further recommendations based on clinical course Nurse practitioner note has been reviewed by physician. Signing provider agrees with the documented findings, assessment, and plan of care. 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 misty cataracts Past Anesthesia/Blood Transfusion Reactions: No Reported Reaction Past Psychological History: Anxiety Smoking Status: Former smoker Past Alcohol Use History: None Reported Past Drug Use History: None Reported - Past Family History Mother Family Medical History: Cancer Son(s) Family Medical History: Cancer Medications and Allergies Home Medications Medication Instructions Recorded Confirmed Type Multivit-Min/FA/Lycopen/Lutein 1 tab PO DAILY 09/12/15 02/17/22 History [Centrum Silver Tablet] Omeprazole [PriLOSEC] 20 mg PO AC-BRKFST 09/12/15 02/17/22 History Metoprolol Tartrate [Lopressor] 25 mg PO TID 05/24/16 02/17/22 History ALPRAZolam [Xanax] 0.25 mg PO TID 02/17/22 02/17/22 History Acetaminophen-Codeine 300-30mg 1 tab PO Q6H PRN 02/17/22 02/17/22 History [Tylenol w/codeine #3] Atorvastatin [Lipitor] 10 mg PO DAILY 02/17/22 02/17/22 History Baclofen [Lioresal] 10 mg PO BID PRN 02/17/22 02/17/22 History Furosemide [Lasix] 40 mg PO DAILY 02/17/22 02/17/22 History Allergies Allergy/AdvReac Type Severity Reaction Status Date / Time codeine AdvReac Vomiting Verified 02/17/22 12:04 Physical Exam Vitals: Vital Signs Temp Pulse Resp BP Pulse Ox 02/17/22 14:31 67 95 02/17/22 13:44 97.8 F 68 18 162/79 98 02/17/22 12:28 69 20 176/79 98 02/17/22 11:10 75 118/78 02/17/22 11:00 77 16 178/90 96 02/17/22 10:00 87 16 154/125 96 02/17/22 09:41 55 L 15 154/62 98 02/17/22 08:53 98.2 F 65 15 192/75 95 Intake and Output 02/16/22 02/17/22 02/17/22 22:59 06:59 14:59 Output Total 550 Balance -550 Output: Urine 550 Uretheral (Monge) 550 Other: Weight 68.039 kg Results 02/18/22 07:30 02/18/22 07:30 Cardiac Enzymes 02/17/22 02/17/22 02/17/22 Range/Units 09:29 09:29 11:54 AST 37 H (14-36) U/L Troponin I <0.012 <0.012 (0.000-0.034) ng/mL Coagulation 02/17/22 Range/Units 09:29 PT 9.9 (9.0-12.0) sec APTT 23.0 (22.0-30.0) sec CBC 02/17/22 Range/Units 09:29 WBC 9.1 (3.8-10.6) k/uL RBC 3.96 (3.80-5.40) m/uL Hgb 12.7 (11.4-16.0) gm/dL Hct 39.1 (34.0-46.0) % Plt Count 236 (150-450) k/uL Comprehensive Metabolic Panel 02/17/22 Range/Units 09:29 Sodium 139 (137-145) mmol/L Potassium 3.6 (3.5-5.1) mmol/L Chloride 104 (98-107) mmol/L Carbon Dioxide 27 (22-30) mmol/L BUN 19 H (7-17) mg/dL Creatinine 0.81 (0.52-1.04) mg/dL Glucose 154 H (74-99) mg/dL Calcium 8.8 (8.4-10.2) mg/dL AST 37 H (14-36) U/L ALT 26 (4-34) U/L Alkaline Phosphatase 67 (38-126) U/L Total Protein 7.2 (6.3-8.2) g/dL Albumin 4.3 (3.5-5.0) g/dL Current Medications Generic Name Dose Route Start Last Admin Trade Name Freq PRN Reason Stop Dose Admin Alprazolam 0.25 mg 02/17/22 11:46 Alprazolam 0.25 Mg Tab PO TID PRN Anxiety Aspirin 325 mg 02/18/22 09:00 Aspirin 325 Mg Tab PO DAILY GEO Nitroglycerin 0.4 mg 02/17/22 11:44 Nitroglycerin Sl Tabs 0.4 Mg Tab SUBLINGUAL Q5M PRN Chest Pain Intake and Output 02/16/22 02/17/22 02/17/22 22:59 06:59 14:59 Output Total 550 Balance -550 Output: Urine 550 Uretheral (Monge) 550 Other: Weight 68.039 kg Patient Weight 02/18/22 06:59 Weight 68.039 kg 02/17/22 09:29 02/17/22 09:29
--- NOTE | 2022-02-18 10:43 | CA ---
Transthoracic Echo Report Name: Denise Shoemaker Age: 81 Gender: F : 1940 Exam Date: 02/18/2022 08:30 Exam Location: [facility] Ht (in): 60 Wt (lb): 150 Ordering Physician: Toya Ocampo Attending/Referring Phys: Computer Programming Supervisor Margaret Smith RDCS Procedure CPT: Indications: Bradycardia Cardiac Hx: Technical Quality: Fair Contrast 1: Total Dose (mL): Contrast 2: Total Dose (mL): MEASUREMENTS (Male / Female) Normal Values 2D ECHO LV Diastolic Diameter PLAX 4.3 cm 4.2 - 5.9 / 3.9 - 5.3 cm LV Systolic Diameter PLAX 3.0 cm IVS Diastolic Thickness 1.2 cm 0.6 - 1.0 / 0.6 - 0.9 cm LVPW Diastolic Thickness 1.5 cm 0.6 - 1.0 / 0.6 - 0.9 cm LV Relative Wall Thickness 0.6 RV Internal Dim ED PLAX 2.1 cm LA Volume 46.8 cm??? 18 - 58 / 22 - 52 cm??? M-MODE Aortic Root Diameter MM 3.4 cm LA Systolic Diameter MM 3.8 cm LA Ao Ratio MM 1.1 AV Cusp Separation MM 1.6 cm DOPPLER AV Peak Velocity 166.7 cm/s AV Peak Gradient 11.1 mmHg AI Peak Velocity 401.6 cm/s AI Peak Gradient 64.5 mmHg AI Pressure Half Time 364.6 ms LVOT Peak Velocity 131.3 cm/s LVOT Peak Gradient 6.9 mmHg MV Area PHT 3.5 cm??? Mitral E Point Velocity 100.9 cm/s Mitral A Point Velocity 100.9 cm/s Mitral E to A Ratio 1.0 MV Deceleration Time 217.1 ms MV E' Velocity 5.7 cm/s Mitral E to MV E' Ratio 17.7 TR Peak Velocity 151.7 cm/s TR Peak Gradient 9.2 mmHg Right Ventricular Systolic Press 14.2 mmHg FINDINGS Left Ventricle Normal left ventricular systolic function with no obvious regional wall motion abnormalities. Left ventricular cavity size normal. Mildly increased left ventricular wall thickness. Left ventricular ejection fraction is estimated at 55-60 %. Right Ventricle Right ventricle not well visualized. Right ventricular systolic pressure within normal limits. Right Atrium Normal right atrial size. Left Atrium Normal left atrial size. No evidence for an atrial septal defect. Mitral Valve Structurally normal mitral valve. No mitral stenosis, regurgitation or prolapse. Aortic Valve Trileaflet aortic valve. Aortic valve sclerosis. Mild aortic regurgitation. No aortic stenosis. Tricuspid Valve Mild tricuspid regurgitation. Pulmonic Valve Trace pulmonic regurgitation. Pericardium No pericardial effusion. Aorta Normal size aortic root and proximal ascending aorta. CONCLUSIONS Normal LV size and systolic function without wall motion abnormalities Mild LVH Previewed by: Dr. Hans Payan MD (Electronically Signed) Final Date: 18 Feb 2022 10:43
[2022-02-18 11:22] LABS: T4, Free (Free Thyroxine) 1.22 ng/dL (0.78-2.19)
[2022-02-18 19:28] LABS: Chol/HDL Ratio 3.18 Ratio; LDL Cholesterol,Calculated 105.4 mg/dL (0.0-131.0)
[2022-02-18 20:24] VITALS: RESP 16
[2022-02-19] MEDS: PANTOPRAZOLE 40 MG TABLET PO SCH (06:01)
--- NOTE | 2022-02-19 08:11 | P.PN ---
Subjective Progress Note Date: 02/19/22 Principal diagnosis: Syncope The patient is a pleasant 81-year-old female patient was admitted to the hospital with syncope we believe that his vasovagal because the patient was e xperiencing symptoms of nausea and vomiting and the syncope happened at that time. She did have an episode of bradycardia with 3 episodes of asystole associated with nausea and vomiting. She was receiving beta yaya which was stopped. She was seen this morning. She has no arrhythmia throughout the night. Her heart rate has been in the 70s. She is asymptomatic at this point. Beta yaya is on hold. The echo revealed normal all dysfunction. From a cardiac vascular standpoint of view, the patient potentially can be discharged home with event monitor and follow-up Objective - Vital Signs Vital signs: Vital Signs Temp 98.2 F 02/19/22 03:41 Pulse 74 02/19/22 03:41 Resp 16 02/19/22 03:41 BP 133/67 02/19/22 03:41 Pulse Ox 94 L 02/19/22 03:41 Intake & Output 02/18/22 02/19/22 02/19/22 18:59 06:59 18:59 Intake Total 1470 Output Total 1700 700 Balance -230 -700 Weight 67.5 kg Intake: Oral 1470 Output: Urine 1700 700 Uretheral (Monge) 700 Other: Voiding Method Indwelling Catheter Indwelling Catheter # Bowel Movements 1 - Constitutional General appearance: Present: no acute distress - Respiratory Respiratory: bilateral: diminished - Cardiovascular Rhythm: regular Heart sounds: normal: S1, S2 - Labs CBC & Chem 7: 02/18/22 07:30 02/18/22 07:30 Labs: Abnormal Lab Results - Last 24 Hours (Table) 02/18/22 Range/Units 07:30 Carbon Dioxide 32 H (22-30) mmol/L Glucose 126 H (74-99) mg/dL TSH 0.122 L (0.465-4.680) mIU/L Assessment and Plan Assessment: Assessment #1 syncopal episode likely vasovagal #2 the bradycardia/asystole #3 hypertension Plan #1 continue holding any AV deven yaya agents #2 the patient can be discharged home with event monitor
[2022-02-19] MEDS: ASPIRIN 81 MG PO SCH (09:02)
[2022-02-19] MEDS: ALPRAZolam 0.25 MG TAB PO SCH (09:02)
[2022-02-19] MEDS: FUROSEMIDE 40 MG TAB PO SCH (09:03)
[2022-02-19] MEDS: ATORVASTATIN 10 MG TAB PO SCH (09:03)
[2022-02-19] MEDS: FAMOTIDINE 20 MG TAB PO SCH (09:03)
[2022-02-19 11:53] VITALS: BP 131/71; PULSE 75; TEMP 98.3
--- NOTE | 2022-02-19 13:24 | P.DS ---
Providers Date of admission: 02/17/22 11:44 Expected date of discharge: 02/19/22 Attending physician: Kalin Rodriguez Consults: 02/17/22 11:44 Consult Physician Urgent Consulting Provider: [facility] Consult Reason/Comments: Asystole, bradycardia Do you want consulting provider notified?: Yes Primary care physician: [facility] Course: 81-year-old female one of my office patient with known for long time with past medical history of breast cancer is known to have history of hypertension and atherosclerotic heart disease also known to have history of mild anxiety attack and severe GERD who was in the office yesterday for severe right hip pain was diagnosed with high suspicion of avascular necrosis, patient apparently was started on a smaller dose of Tylenol 3 along with baclofen no injection was done. Patient had called her granddaughter this morning and was more slurred not feeling well at the time and apparently she drop her phone call penitentiary through. She dialed the phone again in 20 minutes and was not feeling well at the time. The granddaughter drove to see her 1 found her unresponsive she called 911 and EMS came in and work on patient for short period of time then decided to transfer her to the emergency room. On the way patient had nausea and vomited one time she was giving Narcan on the way to the emergency room apparently had one episode of asystole last for a few seconds. Was seen and evaluated the emergency department laboratory value showed normal CK with troponin, normal CBC CMP with normal d-dimer as well. Her chest x-ray showed chronic changes and mild cardiomegaly without any acute process. In between her episodes are EKG showed sinus rhythm with nonspecific abnormality. The patient had another episode of asystole and was giving some atropine and admitted to the hospital did not require any electric shock or any resuscitation. 56: The patient had echocardiogram done this morning and report is pending. She has been seen by Dr. Garcia as well. Patient is complaining of headache type buzzing bees and her head and CAT scan of the brain will be ordered to rule out any metastatic disease with history of breast cancer. Patient has been afebrile, heart rate in the 70s, blood pressure 137/61, pulse ox 90% on room air. Repeat CBC unremarkable. CO2 32, blood sugar 126 otherwise CMP unremarkable. Troponins are negative on 3 draws. TSH 0.122 and free T4 is pending. Urinalysis was negative. Patient is that no further episodes and family at bedside, all questions been answered. REVIEW OF SYSTEMS Constitutional: No fever, no chills, no night sweats. No weight change. No weakness, fatigue or lethargy. No daytime sleepiness. EENT: No headache. No blurred vision or double vision, no loss of vision. No loss of Hearing, no ringing in the ears, no dizziness. No nasal drainage or congestion. No epistaxis. No sore throat. Lungs: No shortness of breath, cough, no sputum production. No wheezing. Cardiovascular: nodyspnea and shortness of breath arrhythmia asystole and mild lightheadedness and dizziness. Abdominal: No abdominal pain. No nausea, vomiting. No diarrhea. No constipation. No bloody or tarry stools.. No loss of appetite. Genitourinary: No dysuria, increased frequency, urgency. No urinary retention. Musculoskeletal: No myalgias. No muscle weakness, no gait dysfunction, no frequent falls. No back pain. No neck pain. Still have lumbar spine pain along with right hip pain. Integumentary: No wounds, no lesions. No rash or pruritus. No unusual bruising. No change in hair or nails. Neurologic: Loss of consciousness with no syncope no seizure activity. Psychiatric: No depression. No anxiety. No mood swings. Endocrine: No abnormal blood sugars. No weight change. No excessive sweating or thirst. No cold intolerance. PHYSICAL EXAMINATION Gen: This is a well-developed laying in bed in no acute respiratory distress. HEENT: Head is atraumatic, normocephalic. Pupils equal, round. Sclerae is anicteric. NECK: Supple. No JVD. No lymphadenopathy. No thyromegaly. LUNGS: Clear to auscultation. No wheezes or rhonchi. No intercostal retractions. HEART: Regular rate and rhythm. No murmur. ABDOMEN: Soft. Bowel sounds are present. No masses. No tenderness. Monge catheter is in place, no hematuria, this will be discontinued prior to discharge EXTREMITIES: No pedal edema. No calf tenderness. Slight discomfort in the right hip area. NEUROLOGICAL: Patient is awake, alert and oriented x3. Cranial nerves 2 through 12 are grossly intact. Back: Slight discomfort the lumbar spine area with significant scoliosis and kyphosis. FINAL DIAGNOSIS 1. Unresponsive and asystole: Patient was given atropine, was giving Narcan as well no further episodes she had total of 3 episode of asystole not totally clear etiology could be reaction to codeine at this point which is on any medic ations is taking found to be slight extreme at the time. Continue cardiac monitoring, cardiology consult, patient may require pacemaker, off metoprolol and will be discontinued and not restarted on discharge and unable to tolerate and previously tried on multiple products with calcium channel yaya, Reagan, ARB and clonidine. Given 30 day monitor outpatient cardiology ffup 2 severe arrhythmia and asystole: Patient might require pacemaker will be study limited more carefully at this point, cardiology consultation cleared for discharge outpatient event monitor no beta yaya on discharge 3 hypertension: Patient has been on metoprolol titrate 25 g 3 times a day which has worked for her better than anything else the past patient would not be able to take metoprolol , on hold for history of recent asystole. 4 hyperlipidemia: Has been on Lipitor 10 mg a day. 5 chronic edema: Has been on Lasix 40 mg daily. 6 severe GERD: Has been on Prilosec. 7 history of breast cancer: Has been in remission at this point. 8 severe lower back pain and hip pain, her x-ray of the hip showed mild arthritis only, thoracic and lumbar x-ray will be done no fracture nor dislocation no suspicious lesions. 9 GI prophylaxis: Patient will be on Pepcid. 10 DVT prophylaxis: Patient will have early mobilization and knee-high CHARLES hose. 11. Indwelling Monge catheter and possible urinary retention patient is not on any anti-cholinergics, discontinued on 02/19, patient has to void spontaneously, prior to discharge CODE STATUS: Full code. Patient Condition at Discharge: Good Plan - Discharge Summary New Discharge Prescriptions: New hydrALAZINE HCL [Apresoline] 25 mg PO QID PRN #120 tab PRN Reason: Blood Pressure - High Aspirin 81 mg PO DAILY Continue Omeprazole [PriLOSEC] 20 mg PO AC-BRKFST Multivit-Min/FA/Lycopen/Lutein [Centrum Silver Tablet] 1 tab PO DAILY ALPRAZolam [Xanax] 0.25 mg PO TID Atorvastatin [Lipitor] 10 mg PO DAILY Baclofen [Lioresal] 10 mg PO BID PRN PRN Reason: Pain Acetaminophen-Codeine 300-30mg [Tylenol w/codeine #3] 1 tab PO Q6H PRN PRN Reason: Pain Furosemide [Lasix] 40 mg PO DAILY Discontinued Metoprolol Tartrate [Lopressor] 25 mg PO TID Discharge Medication List Multivit-Min/FA/Lycopen/Lutein [Centrum Silver Tablet] 1 tab PO DAILY 09/12/15 [History] Omeprazole [PriLOSEC] 20 mg PO AC-BRKFST 09/12/15 [History] ALPRAZolam [Xanax] 0.25 mg PO TID 02/17/22 [History] Acetaminophen-Codeine 300-30mg [Tylenol w/codeine #3] 1 tab PO Q6H PRN 02/17/22 [History] Atorvastatin [Lipitor] 10 mg PO DAILY 02/17/22 [History] Baclofen [Lioresal] 10 mg PO BID PRN 02/17/22 [History] Furosemide [Lasix] 40 mg PO DAILY 02/17/22 [History] Aspirin 81 mg PO DAILY 02/19/22 [Rx] hydrALAZINE HCL [Apresoline] 25 mg PO QID PRN #120 tab 02/19/22 [Rx] Follow up Appointment(s)/Referral(s): Rajiv Garcia MD [STAFF PHYSICIAN] - 02/23/22 10:30 am (You will also get your event monitor at this time.) Kalin Rodriguez MD [Primary Care Provider] - 1-2 days (please call office on monday to schedule an appointment) Patient Instructions/Handouts: Bradycardia (DC) Discharge Disposition: HOME SELF-CARE
== END 2022-02-19 15:05 | disposition home or self-care (01) | DRG 917 ==
LOC: EC 08:47 → 3SCARD 11:44
PROVIDERS: ADMIT Internal Medicine Geriatric Medicine; ATTEND Internal Medicine Geriatric Medicine
DX: T40.2X1A Poisoning by other opioids, accidental (unintentional), initial encounter (principal); I46.9 Cardiac arrest, cause unspecified; R11.2 Nausea with vomiting, unspecified; R33.9 Retention of urine, unspecified; R00.1 Bradycardia, unspecified; I10 Essential (primary) hypertension; M79.7 Fibromyalgia; E78.5 Hyperlipidemia, unspecified; F41.1 Generalized anxiety disorder; I25.10 Atherosclerotic heart disease of native coronary artery without angina pectoris; K21.9 Gastro-esophageal reflux disease without esophagitis; M54.50 Low back pain, unspecified; R19.7 Diarrhea, unspecified; M16.11 Unilateral primary osteoarthritis, right hip; R51.9 Headache, unspecified; I83.90 Asymptomatic varicose veins of unspecified lower extremity; Z79.899 Other long term (current) drug therapy; Z85.3 Personal history of malignant neoplasm of breast; Z90.89 Acquired absence of other organs; Z90.710 Acquired absence of both cervix and uterus; Z90.49 Acquired absence of other specified parts of digestive tract; Z87.19 Personal history of other diseases of the digestive system; Z98.42 Cataract extraction status, left eye; Z98.41 Cataract extraction status, right eye; Z86.018 Personal history of other benign neoplasm; Z87.891 Personal history of nicotine dependence; Z87.42 Personal history of other diseases of the female genital tract; Z86.718 Personal history of other venous thrombosis and embolism; Z98.890 Other specified postprocedural states; Y92.009 Unspecified place in unspecified non-institutional (private) residence as the place of occurrence of the external cause
CPT/HCPCS: 36415; 51798; 70450; 71045; 72070; 72100; 80053; 80061; 81003; 83735; 83880; 84439; 84443; 84484; 85025; 85027; 85379; 85610; 85730; 93005; 93306; 96361; 96374; 96375; 99291

== ENCOUNTER 2022-03-01 09:09 | Emergency (ER) | payer MEDICARE ==
[2022-03-01 09:24] VITALS: TEMP 97.9
[2022-03-01 09:50] LABS: Basophils # (A) 0.1 k/uL (0-0.2); Basophils % (A) 1 %; Eosinophils # (A) 0.2 k/uL (0-0.7); Eosinophils % (A) 3 %; HCT 42.9 % (34.0-46.0); HGB 13.5 gm/dL (11.4-16.0); Lymphocytes # (A) 1.4 k/uL (1.0-4.8); Lymphocytes % (A) 20 %; MCH 31.4 pg (25.0-35.0); MCHC 31.5 g/dL (31.0-37.0); MCV 99.8 fL (80.0-100.0); Mean Platelet Volume 7.9; Monocytes # (A) 0.6 k/uL (0-1.0); Monocytes % (A) 8 %; Neutrophils % (A) 68 %; Platelet Count 315 k/uL (150-450); RDW 12.1 % (11.5-15.5); WBC 7.4 k/uL (3.8-10.6)
[2022-03-01 10:07] LABS: Albumin 4.8 g/dL (3.5-5.0); Calcium 9.9 mg/dL (8.4-10.2); Magnesium 2.1 mg/dL (1.6-2.3); Potassium 4.2 mmol/L (3.5-5.1); Total Bilirubin 0.4 mg/dL (0.2-1.3)
--- NOTE | 2022-03-01 10:42 | XR ---
EXAMINATION TYPE: XR chest 2V DATE OF EXAM: 03/01/2022 COMPARISON: 02/17/2022 HISTORY: 81-year-old female with chest pain and arrhythmia today TECHNIQUE: PA and lateral views FINDINGS: Electronic device projecting at the left upper lung. Heart normal size. Atherosclerotic arch calcific ations. Mild interstitial prominence unchanged. Mild hyperinflation. No consolidation or pleural effu mary. [facility] within the mid thoracic spine. IMPRESSION: COPD. No acute process seen.
--- NOTE | 2022-03-01 12:21 | ED ---
General Adult HPI - General Chief complaint: Chest Pain Stated complaint: Chest Pain/Arrhythmia Time Seen by Provider: 03/01/22 12:01 Source: patient, family, RN notes reviewed Mode of arrival: wheelchair Limitations: no limitations - History of Present Illness Initial comments: Patient is a pleasant 81-year-old female presenting to the emergency department with palpitations. Onset was last night. Patient admits to feeling anxious. Patient did have some mild symptoms still this morning. Patient had some minimal discomfort right mid back yesterday. Patient denies having any chest discomfort. Patient has had some similar symptoms previously and was recently in the hospital. Patient has been placed on the monitor. Patient had a little bit of shortness of breath last night. No vomiting. Patient had some mild leg edema which is chronic for her and did take some Lasix this morning. Currently patient feels a little bit anxious otherwise symptom-free. - Related Data Home Medications Medication Instructions Recorded Confirmed Multivit-Min/FA/Lycopen/Lutein 1 tab PO DAILY 09/12/15 03/01/22 [Centrum Silver Tablet] Omeprazole [PriLOSEC] 20 mg PO AC-BRKFST 09/12/15 03/01/22 ALPRAZolam [Xanax] 0.25 mg PO TID 02/17/22 03/01/22 Acetaminophen-Codeine 300-30mg 1 tab PO Q6H PRN 02/17/22 03/01/22 [Tylenol w/codeine #3] Atorvastatin [Lipitor] 10 mg PO DAILY 02/17/22 03/01/22 Baclofen [Lioresal] 10 mg PO BID PRN 02/17/22 03/01/22 Furosemide [Lasix] 40 mg PO DAILY 02/17/22 03/01/22 Previous Rx's Medication Instructions Recorded Aspirin 81 mg PO DAILY 02/19/22 hydrALAZINE HCL [Apresoline] 25 mg PO QID PRN #120 tab 02/19/22 Allergies Allergy/AdvReac Type Severity Reaction Status Date / Time codeine AdvReac Vomiting Verified 03/01/22 13:28 Review of Systems ROS Statement: Those systems with pertinent positive or pertinent negative responses have been documented in the HPI. ROS Other: All systems not noted in ROS Statement are negative. Constitutional: Denies: fever Eyes: Denies: eye pain ENT: Denies: ear pain Respiratory: Denies: cough Cardiovascular: Reports: as per HPI, palpitations Endocrine: Denies: fatigue Gastrointestinal: Denies: abdominal pain Genitourinary: Denies: dysuria Musculoskeletal: Reports: as per HPI Skin: Denies: rash Neurological: Denies: weakness Past Medical History Past Medical History: Cancer, Fibromyalgia, GERD/Reflux, Hypertension, Osteoarthritis (OA) Additional Past Medical History / Comment(s): varicose veins, breast cancer History of Any Multi-Drug Resistant Organisms: None Reported Past Surgical History: Appendectomy, Hysterectomy, Tonsillectomy Additional Past Surgical History / Comment(s): benign TUMOR FROM STOMACH REMOVED. misty cataracts Past Anesthesia/Blood Transfusion Reactions: No Reported Reaction Past Psychological History: Anxiety Smoking Status: Former smoker Past Alcohol Use History: None Reported Past Drug Use History: None Reported - Past Family History Mother Family Medical History: Cancer Son(s) Family Medical History: Cancer General Exam Limitations: no limitations General appearance: alert, in no apparent distress Head exam: Present: normocephalic Eye exam: Present: normal appearance Neck exam: Present: normal inspection Respiratory exam: Present: normal lung sounds bilaterally. Absent: chest wall tenderness Cardiovascular Exam: Present: regular rate, normal rhythm Expanded Peripheral pulses: 2+: Radial (R), Radial (L), Dorsalis Pedis (R), Dorsalis Pedis (L) GI/Abdominal exam: Present: soft. Absent: tenderness Extremities exam: Present: normal inspection. Absent: pedal edema, calf tenderness Neurological exam: Present: alert Psychiatric exam: Present: normal affect, normal mood Skin exam: Present: normal color Course Vital Signs 03/01/22 03/01/22 09:21 12:27 Temperature 97.9 F Pulse Rate 81 Pulse Rate [ 81 Right Sitting Pulse Oximetery ] Respiratory 16 Rate Blood Pressure 155/72 O2 Sat by Pulse 98 Oximetry EKG Findings - EKG Comments: EKG Findings:: Sinus rhythm rate 81. [place] 198. QRS 97. QT 392. QTC 429. Normal axis. Normal QRS. No acute ST change. Medical Decision Making - Medical Decision Making Patient and family the longer want to stay secondary to problems with other patients. Evaluation reveals nothing acute at this time. We are still waiting to hear back from Dr. Garcia. Family and patient are agreeable to close follow-up with him including phone call today. Return for worsening symptoms. - Lab Data Result diagrams: 03/01/22 09:27 03/01/22 09:27 Lab Results 03/01/22 03/01/22 03/01/22 Range/Units 09:27 09:27 09:27 WBC 7.4 (3.8-10.6) k/uL RBC 4.30 (3.80-5.40) m/uL Hgb 13.5 (11.4-16.0) gm/dL Hct 42.9 (34.0-46.0) % MCV 99.8 (80.0-100.0) fL MCH 31.4 (25.0-35.0) pg MCHC 31.5 (31.0-37.0) g/dL RDW 12.1 (11.5-15.5) % Plt Count 315 (150-450) k/uL MPV 7.9 Neutrophils % 68 % Lymphocytes % 20 % Monocytes % 8 % Eosinophils % 3 % Basophils % 1 % Neutrophils # 5.0 (1.3-7.7) k/uL Lymphocytes # 1.4 (1.0-4.8) k/uL Monocytes # 0.6 (0-1.0) k/uL Eosinophils # 0.2 (0-0.7) k/uL Basophils # 0.1 (0-0.2) k/uL PT (9.0-12.0) sec INR (<1.2) APTT (22.0-30.0) sec D-Dimer (<0.60) mg/L FEU Sodium 143 (137-145) mmol/L Potassium 4.2 (3.5-5.1) mmol/L Chloride 105 (98-107) mmol/L Carbon Dioxide 27 (22-30) mmol/L Anion Gap 11 mmol/L BUN 20 H (7-17) mg/dL Creatinine 0.83 (0.52-1.04) mg/dL Est GFR (CKD-EPI)AfAm 77 (>60 ml/min/1.73 sqM) Est GFR (CKD-EPI)NonAf 67 (>60 ml/min/1.73 sqM) Glucose 99 (74-99) mg/dL Calcium 9.9 (8.4-10.2) mg/dL Magnesium 2.1 (1.6-2.3) mg/dL Total Bilirubin 0.4 (0.2-1.3) mg/dL AST 32 (14-36) U/L ALT 25 (4-34) U/L Alkaline Phosphatase 76 (38-126) U/L Troponin I <0.012 (0.000-0.034) ng/mL Total Protein 8.0 (6.3-8.2) g/dL Albumin 4.8 (3.5-5.0) g/dL 03/01/22 Range/Units 12:24 WBC (3.8-10.6) k/uL RBC (3.80-5.40) m/uL Hgb (11.4-16.0) gm/dL Hct (34.0-46.0) % MCV (80.0-100.0) fL MCH (25.0-35.0) pg MCHC (31.0-37.0) g/dL RDW (11.5-15.5) % Plt Count (150-450) k/uL MPV Neutrophils % % Lymphocytes % % Monocytes % % Eosinophils % % Basophils % % Neutrophils # (1.3-7.7) k/uL Lymphocytes # (1.0-4.8) k/uL Monocytes # (0-1.0) k/uL Eosinophils # (0-0.7) k/uL Basophils # (0-0.2) k/uL PT 9.5 (9.0-12.0) sec INR 0.9 (<1.2) APTT 23.7 (22.0-30.0) sec D-Dimer 0.48 (<0.60) mg/L FEU Sodium (137-145) mmol/L Potassium (3.5-5.1) mmol/L Chloride (98-107) mmol/L Carbon Dioxide (22-30) mmol/L Anion Gap mmol/L BUN (7-17) mg/dL Creatinine (0.52-1.04) mg/dL Est GFR (CKD-EPI)AfAm (>60 ml/min/1.73 sqM) Est GFR (CKD-EPI)NonAf (>60 ml/min/1.73 sqM) Glucose (74-99) mg/dL Calcium (8.4-10.2) mg/dL Magnesium (1.6-2.3) mg/dL Total Bilirubin (0.2-1.3) mg/dL AST (14-36) U/L ALT (4-34) U/L Alkaline Phosphatase (38-126) U/L Troponin I (0.000-0.034) ng/mL Total Protein (6.3-8.2) g/dL Albumin (3.5-5.0) g/dL - Radiology Data Radiology results: image reviewed (Chest x-ray shows COPD changes. Otherwise no acute process.) Disposition Clinical Impression: Palpitations Disposition: HOME SELF-CARE Condition: Stable Instructions (If sedation given, give patient instructions): Heart Palpitations (ED) Additional Instructions: Please follow-up with Dr. Garcia in the next day for recheck. Call today. Have Dr. Garcia review monitor. Return for pain, difficulty breathing, increased heart rate, worsening or changing symptoms or other concerns. Please also follow-up with primary care physician in the next day or 2. Is patient prescribed a controlled substance at d/c from ED?: No Referrals: Kalin Rodriguez MD [Primary Care Provider] - 1-2 days Rajiv Garcia MD [Family Provider] - 1-2 days Time of Disposition: 13:33
[2022-03-01 12:47] LABS: INR 0.9 (<1.2); Partial Thromboplastin Time 23.7 sec (22.0-30.0); Prothrombin Time 9.5 sec (9.0-12.0)
[2022-03-01 13:44] VITALS: BP 148/68; PULSE 80; RESP 18
== END 2022-03-01 13:43 | disposition home or self-care (01) ==
LOC: EC 09:09
DX: R00.2 Palpitations (principal); R07.9 Chest pain, unspecified; I10 Essential (primary) hypertension; K21.9 Gastro-esophageal reflux disease without esophagitis; Z87.891 Personal history of nicotine dependence; Z88.5 Allergy status to narcotic agent; Z79.899 Other long term (current) drug therapy
CPT/HCPCS: 36415; 71046; 80053; 83735; 84484; 85025; 85379; 85610; 85730; 93005; 99285

== ENCOUNTER → 2022-04-01 | Outpatient (CLI) | payer MEDICARE ==
--- NOTE | 2022-04-04 11:45 | MM ---
Reason for Exam: Screening (asymptomatic). Last mammogram was performed 1 year(s) and 8 month(s) ago. Patient History: Menarche at age 13. First Full-Term at age 21. Left ovary removed at age 31. Right ovary removed at age 31. Hysterectomy at age 31. Postmenopausal. Breast cancer, left, age 76. Previous chest radiation therapy. Benign Cyst Aspiration on the right side. 2015, Lumpectomy on the Left side. 09/13/2016, Malignant Core Biopsy on the left side. 08/29/2016, Malignant Core Biopsy on the left side. 2016, Radiation Therapy on the left side. Mother had breast cancer, age 40. Prior Study Comparison: 05/29/2018 Bilateral Diagnostic Mammogram, [facility]. 06/03/2019 Bilateral Diagnostic Mammogram, [facility]. 08/10/2020 Bilateral Screening Mammogram, [facility]. Tissue Density: The breast tissue is heterogeneously dense. This may lower the sensitivity of mammography. Findings: Analyzed By CAD. There is no suspicious group of microcalcifications or new suspicious mass in either breast. Clip markers left breast. Overall Assessment: Benign, BI-RAD 2 Management: Screening Mammogram of both breasts in 1 year. A clinical breast exam by your physician is recommended on an annual basis and results should be correlated with mammographic findings. Electronically signed and approved by: Curtis Gonzalez M.D. Radiologis
== END | disposition home or self-care (01) ==
LOC: RADMAMWWP 16:04
PROVIDERS: ATTEND Internal Medicine Geriatric Medicine
DX: Z12.31 Encounter for screening mammogram for malignant neoplasm of breast (principal); Z78.0 Asymptomatic menopausal state; Z80.3 Family history of malignant neoplasm of breast
CPT/HCPCS: 77063; 77067

== ENCOUNTER 2023-03-30 20:34 | Inpatient (IN) | payer MEDICARE ==
--- NOTE | 2023-03-30 21:30 | ED ---
General Adult HPI - General Chief complaint: Chest Pain Stated complaint: Abd pain Time Seen by Provider: 03/30/23 20:54 Source: EMS Mode of arrival: EMS Limitations: no limitations - History of Present Illness Initial comments: Dictation was produced using [employer] dictation software. please excuse any grammatical, word or spelling errors. Chief Complaint: 82-year-old female with a constellation of chest pain, back pain, abdominal pain History of Present Illness: She is an 82-year-old female she has past medical history of hypertension, osteoarthritis, hiatal hernia. Over the last 4 days since Monday she's been having vague constellation of symptoms including back pain, abdominal pain, chest pain. Patient has history of hiatal hernia. Granddaughter do bedside reports that she needs an ultrasound to evaluate for her hiatal hernia. Granddaughter thought that perhaps maybe patient was constipated so she was given some MiraLAX. She did have to satisfy bowel movements have her symptoms persisted. She thought that if she lay down for bed tonight that her symptoms are improved. The ROS documented in this emergency department record has been reviewed and confirmed by me. Those systems with pertinent positive or negative responses have been documented in the HPI. All other systems are other negative and/or noncontributory. - Related Data Home Medications Medication Instructions Recorded Confirmed Multivit-Min/FA/Lycopen/Lutein 1 tab PO DAILY 09/12/15 03/01/22 [Centrum Silver Tablet] Omeprazole [PriLOSEC] 20 mg PO AC-BRKFST 09/12/15 03/01/22 ALPRAZolam [Xanax] 0.25 mg PO TID 02/17/22 03/01/22 Acetaminophen-Codeine 300-30mg 1 tab PO Q6H PRN 02/17/22 03/01/22 [Tylenol w/codeine #3] Atorvastatin [Lipitor] 10 mg PO DAILY 02/17/22 03/01/22 Baclofen [Lioresal] 10 mg PO BID PRN 02/17/22 03/01/22 Furosemide [Lasix] 40 mg PO DAILY 02/17/22 03/01/22 Previous Rx's Medication Instructions Recorded Aspirin 81 mg PO DAILY 02/19/22 hydrALAZINE HCL [Apresoline] 25 mg PO QID PRN #120 tab 02/19/22 Allergies Allergy/AdvReac Type Severity Reaction Status Date / Time codeine AdvReac Vomiting Verified 03/01/22 13:28 Review of Systems ROS Statement: Those systems with pertinent positive or pertinent negative responses have been documented in the HPI. ROS Other: All systems not noted in ROS Statement are negative. 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 misty cataracts Past Anesthesia/Blood Transfusion Reactions: No Reported Reaction Past Psychological History: Anxiety Smoking Status: Former smoker Past Alcohol Use History: None Reported Past Drug Use History: None Reported - Past Family History Mother Family Medical History: Cancer Son(s) Family Medical History: Cancer General Exam - General Exam Comments Initial Comments: PHYSICAL EXAM: General Impression: Alert and oriented x3, not in acute distress HEENT: Normocephalic atraumatic, extra-ocular movements intact, pupils equal and reactive to light bilaterally, mucous membranes moist. Cardiovascular: Heart regular rate and rhythm Chest: Able to complete full sentences, no retractions, no tachypnea Abdomen: abdomen soft, non-tender, non-distended, no organomegaly Musculoskeletal: Pulses present and equal in all extremities, no peripheral edema Motor: no focal deficits noted Neurological: CN II-XII grossly intact, no focal motor or sensory deficits noted Skin: Intact with no visualized rashes Psych: Normal affect and mood Limitations: no limitations Course Vital Signs 03/30/23 03/30/23 03/30/23 20:37 21:00 21:30 Pulse Rate 89 Respiratory 18 Rate Blood Pressure 180/100 203/88 219/83 O2 Sat by Pulse 95 97 95 Oximetry 03/30/23 03/30/23 03/30/23 22:00 22:30 23:30 Pulse Rate 82 82 Respiratory 18 18 Rate Blood Pressure 203/84 199/81 165/79 O2 Sat by Pulse 95 96 96 Oximetry EKG Findings - EKG Comments: EKG Findings:: My EKG interpretation: Ventricular rate 73, sinus rhythm,. Interval 10/17/2014, QRS 116, QTC 421. No CO prolongation, no QTC prolongation, no ST or T-wave changes noted. Overall, this EKG is unremarkable Medical Decision Making - Medical Decision Making Was pt. sent in by a medical professional or institution ([facility], CORPORATE STRATEGIST, urgent care, hospital, or penitentiary...) When possible be specific @ -No Did you speak to anyone other than the patient for history (EMS, parent, family, police, friend...)? What history was obtained from this source @ -Some history obtained from granddaughter and daughter at the bedside. Granddaughter suggest that patient needs an ultrasound to evaluate for a hiatal hernia. Did you review nursing and triage notes (agree or disagree)? Why? @ -I reviewed and agree with nursing and triage notes Were old charts reviewed (outside hosp., previous admission, EMS record, old EKG, old radiological studies, urgent care reports/EKG's, penitentiary records)? Report findings @ -No old charts were reviewed Differential Diagnosis (chest pain, altered mental status, abdominal pain women, abdominal pain men, vaginal bleeding, musculoskeletal, weakness, fever, dyspnea, syncope, headache, dizziness, GI bleed, back pain, seizure, CVA, palpatations, mental health)? @ -Differential Abdominal Pain Women: Appendicitis, Cholecystitis, diverticulosis, ischemic bowel, pancreatitis, hepatitis, UTI, gastroenteritis, AAA, incarcerated hernia, bowel obstruction, constipation, inflammatory bowel, hepatitis, peptic ulcer disease, splenic infarction, perforated viscus, vulvitis, ovarian torsion, PID, kidney stone, placenta abruption, this is not meant to be an all-inclusive list EKG interpreted by me (3pts min.). @ -See above X-rays interpreted by me (1pt min.). @ -None done CT interpreted by me (1pt min.). @ -Computed tomography scan of the abdomen and pelvis shows mild intrahepatic and severe extrahepatic biliary dilatation. CT angiography of the chest shows no pulmonary embolism or acute processes U/S interpreted by me (1pt. min.). @ -None done What testing was considered but not performed or refused? (CT, X-rays, U/S, labs)? Why? @ -None What meds were considered but not given or refused? Why? @ -None Did you discuss the management of the patient with other professionals (professionals i.e. Dr., PA, CORPORATE STRATEGIST, lab, RT, psych nurse, social media specialist, full stack engineer, teacher, mounted police officer, case preparer and liner)? Give summary @ -Labs, Imaging clinical presentation were discussed with Dr. Qureshi for admission Was smoking cessation discussed for >3mins.? @ -No Was critical care preformed (if so, how long)? @ -No Were there social determinants of health that impacted care today? How? (Homelessness, low income, unemployed, alcoholism, drug addiction, transportation, low edu. Level, literacy, decrease access to med. care, alf, rehab)? @ -No Was there de-escalation of care discussed even if they declined (Discuss DNR or withdrawal of care, Hospice)? DNR status @ -No What co-morbidities impacted this encounter? (DM, HTN, Smoking, COPD, CAD, Cancer, CVA, ARF, Chemo, Hep., AIDS, mental health diagnosis, sleep apnea, morbid obesity)? @ -None Was patient admitted / discharged? Hospital course, mention meds given and route, prescriptions, significant lab abnormalities, going to OR and other pe rtinent info. @ -82-year-old female with the admitted for further evaluation of imaging abnormalities and lab abnormalities. Patient has evidence of biliary dilatation. There is no obvious cause of this seen on CT. She does have elevated liver enzymes. Patient be admitted with consultation to GI Undiagnosed new problem with uncertain prognosis? @ -No Drug Therapy requiring intensive monitoring for toxicity (Heparin, Nitro, Insulin, Cardizem)? @ -No Were any procedures done? @ -No Diagnosis/symptom? Acute, or Chronic, or Acute on Chronic? Uncomplicated (without systemic symptoms) or Complicated (systemic symptoms)? @ -Biliary dilatation, no obvious source Side effects of treatment? @ -No Exacerbation, Progression, or Severe Exacerbation? @ -No Poses a threat to life or bodily function? How? (Chest pain, [place], [place], pneumonia, PE, COPD, DKA, ARF, appy, cholecystitis, CVA, Diverticulitis, Homicidal, Suicidal, threat to staff... and all critical care pts) @ -yes - Lab Data Result diagrams: 03/30/23 20:43 03/30/23 20:43 Lab Results 03/30/23 03/30/23 03/30/23 Range/Units 20:43 20:43 20:43 WBC 9.7 (3.8-10.6) k/uL RBC 4.01 (3.80-5.40) m/uL Hgb 12.9 (11.4-16.0) gm/dL Hct 39.0 (34.0-46.0) % MCV 97.1 (80.0-100.0) fL MCH 32.1 (25.0-35.0) pg MCHC 33.0 (31.0-37.0) g/dL RDW 12.2 (11.5-15.5) % Plt Count 239 (150-450) k/uL MPV 8.0 Neutrophils % 84 % Lymphocytes % 9 % Monocytes % 6 % Eosinophils % 1 % Basophils % 0 % Neutrophils # 8.2 H (1.3-7.7) k/uL Lymphocytes # 0.8 L (1.0-4.8) k/uL Monocytes # 0.6 (0-1.0) k/uL Eosinophils # 0.1 (0-0.7) k/uL Basophils # 0.0 (0-0.2) k/uL PT 9.7 (9.0-12.0) sec INR 0.9 (<1.2) APTT 21.8 L (22.0-30.0) sec D-Dimer 1.04 H (<0.60) mg/L FEU Sodium 139 (137-145) mmol/L Potassium 3.9 (3.5-5.1) mmol/L Chloride 104 (98-107) mmol/L Carbon Dioxide 29 (22-30) mmol/L Anion Gap 6 mmol/L BUN 15 (7-17) mg/dL Creatinine 0.91 (0.52-1.04) mg/dL Est GFR (CKD-EPI)AfAm 68 (>60 ml/min/1.73 sqM) Est GFR (CKD-EPI)NonAf 59 (>60 ml/min/1.73 sqM) Glucose 119 H (74-99) mg/dL Plasma Lactic Acid Moses (0.7-2.0) mmol/L Calcium 9.4 (8.4-10.2) mg/dL Magnesium 1.9 (1.6-2.3) mg/dL Total Bilirubin 1.2 (0.2-1.3) mg/dL AST 1024 H (14-36) U/L ALT 580 H (4-34) U/L Alkaline Phosphatase 223 H (38-126) U/L Troponin I (0.000-0.034) ng/mL Total Protein 7.0 (6.3-8.2) g/dL Albumin 4.3 (3.5-5.0) g/dL Lipase 367 H (23-300) U/L Urine Color Urine Appearance (Clear) Urine pH (5.0-8.0) Ur Specific Rosalia (1.001-1.035) Urine Protein (Negative) Urine Glucose (UA) (Negative) Urine Ketones (Negative) Urine Blood (Negative) Urine Nitrite (Negative) Urine Bilirubin (Negative) Urine Urobilinogen (<2.0) mg/dL Ur Leukocyte Esterase (Negative) Urine RBC (0-5) /hpf Urine WBC (0-5) /hpf Ur Squamous Epith Cells (0-4) /hpf Urine Mucus (None) /hpf 03/30/23 03/30/23 03/30/23 Range/Units 20:43 20:43 21:29 WBC (3.8-10.6) k/uL RBC (3.80-5.40) m/uL Hgb (11.4-16.0) gm/dL Hct (34.0-46.0) % MCV (80.0-100.0) fL MCH (25.0-35.0) pg MCHC (31.0-37.0) g/dL RDW (11.5-15.5) % Plt Count (150-450) k/uL MPV Neutrophils % % Lymphocytes % % Monocytes % % Eosinophils % % Basophils % % Neutrophils # (1.3-7.7) k/uL Lymphocytes # (1.0-4.8) k/uL Monocytes # (0-1.0) k/uL Eosinophils # (0-0.7) k/uL Basophils # (0-0.2) k/uL PT (9.0-12.0) sec INR (<1.2) APTT (22.0-30.0) sec D-Dimer (<0.60) mg/L FEU Sodium (137-145) mmol/L Potassium (3.5-5.1) mmol/L Chloride (98-107) mmol/L Carbon Dioxide (22-30) mmol/L Anion Gap mmol/L BUN (7-17) mg/dL Creatinine (0.52-1.04) mg/dL Est GFR (CKD-EPI)AfAm (>60 ml/min/1.73 sqM) Est GFR (CKD-EPI)NonAf (>60 ml/min/1.73 sqM) Glucose (74-99) mg/dL Plasma Lactic Acid Moses 1.2 (0.7-2.0) mmol/L Calcium (8.4-10.2) mg/dL Magnesium (1.6-2.3) mg/dL Total Bilirubin (0.2-1.3) mg/dL AST (14-36) U/L ALT (4-34) U/L Alkaline Phosphatase (38-126) U/L Troponin I <0.012 (0.000-0.034) ng/mL Total Protein (6.3-8.2) g/dL Albumin (3.5-5.0) g/dL Lipase (23-300) U/L Urine Color Light Yellow Urine Appearance Cloudy H (Clear) Urine pH 8.0 (5.0-8.0) Ur Specific Rosalia 1.006 (1.001-1.035) Urine Protein Negative (Negative) Urine Glucose (UA) Negative (Negative) Urine Ketones Negative (Negative) Urine Blood Negative (Negative) Urine Nitrite Negative (Negative) Urine Bilirubin Negative (Negative) Urine Urobilinogen <2.0 (<2.0) mg/dL Ur Leukocyte Esterase Negative (Negative) Urine RBC 1 (0-5) /hpf Urine WBC 1 (0-5) /hpf Ur Squamous Epith Cells <1 (0-4) /hpf Urine Mucus Rare H (None) /hpf Disposition Clinical Impression: Dilation of biliary tract Disposition: ADMITTED IP TO THIS HOSP Condition: Fair Referrals: Kalin Rodriguez MD [Primary Care Provider] - 1-2 days Decision Time: 01:06
[2023-03-30 21:47] LABS: Basophils % (A) 0 %; Eosinophils # (A) 0.1 k/uL (0-0.7); Eosinophils % (A) 1 %; HGB 12.9 gm/dL (11.4-16.0); Lymphocytes # (A) 0.8 k/uL (1.0-4.8); Lymphocytes % (A) 9 %; MCH 32.1 pg (25.0-35.0); MCV 97.1 fL (80.0-100.0); Monocytes # (A) 0.6 k/uL (0-1.0); Monocytes % (A) 6 %; Neutrophils # (A) 8.2 k/uL (1.3-7.7); Neutrophils % (A) 84 %; Platelet Count 239 k/uL (150-450); RBC 4.01 m/uL (3.80-5.40); RDW 12.2 % (11.5-15.5); WBC 9.7 k/uL (3.8-10.6)
[2023-03-30 21:51] LABS: Appearance,Urine Cloudy (Clear); Bilirubin,Urine Negative (Negative); Blood,Urine Negative (Negative); Color,Urine Light Yellow; Glucose,Urine (UA) Negative (Negative); Ketones,Urine Negative (Negative); Leukocyte Esterase,Urine Negative (Negative); Mucus,Urine Rare /hpf; Nitrite,Urine Negative (Negative); Protein,Urine Negative (Negative); RBC,Urine 1 /hpf (0-5); Specific Gravity,Urine 1.006 (1.001-1.035); Squamous Epithelial Cell,Urine <1 /hpf (0-4); Urobilinogen,Urine <2.0 mg/dL (<2.0); WBC,Urine 1 /hpf (0-5)
[2023-03-30] MEDS ORDERED: ACETAMINOPHEN TAB 500 MG TAB PO STA (21:51)
[2023-03-30] MEDS ORDERED: ONDANSETRON 4 MG/2 ML VIAL IVP STA (21:51)
[2023-03-30 21:54] LABS: ALT 580 U/L (4-34); African American GFR (CKD) 68 (>60 ml/min/1.73 sqM); Albumin 4.3 g/dL (3.5-5.0); Alkaline Phosphatase 223 U/L (38-126); Anion Gap 6 mmol/L; Blood Urea Nitrogen 15 mg/dL (7-17); Calcium 9.4 mg/dL (8.4-10.2); Carbon Dioxide 29 mmol/L (22-30); Chloride 104 mmol/L (98-107); Glucose 119 mg/dL (74-99); Lipase 367 U/L (23-300); Magnesium 1.9 mg/dL (1.6-2.3); Non-African American GFR(CKD) 59 (>60 ml/min/1.73 sqM); Potassium 3.9 mmol/L (3.5-5.1); Sodium 139 mmol/L (137-145); Total Bilirubin 1.2 mg/dL (0.2-1.3)
[2023-03-30 22:00] LABS: AST 1024 U/L (14-36)
[2023-03-30 22:20] LABS: INR 0.9 (<1.2); Partial Thromboplastin Time 21.8 sec (22.0-30.0); Prothrombin Time 9.7 sec (9.0-12.0)
[2023-03-30] MEDS ORDERED: METOCLOPRAMIDE 5 MG/ML 2 ML VIAL IVP STA (22:59)
[2023-03-31] MEDS ORDERED: ALPRAZolam 0.5 MG TAB PO STA (00:18)
--- NOTE | 2023-03-31 00:51 | CT ---
ADDENDUM - Added by Tae Deleon MD on 03/31/2023 12:53 AM (-04:00) Disregard original report: FINDINGS: LUNGS: No focal consolidation, pleural effusion, or pneumothorax. HEART: Cardiomegaly. VASCULATURE: No acute pulmonary embolism. Atherosclerotic change of the aorta. THYROID: Within normal limits. MEDIASTINUM + LYMPH NODES: There are no pathologically enlarged mediastinal, hilar, or axillary lymph nodes. SUPERIOR ABDOMEN: The included portions of the superior abdomen are within normal limits. MUSCULOSKELETAL: Degenerative changes of the spine. IMPRESSION: No acute pulmonary embolism. EXAM: CT Angiography Chest With Intravenous Contrast CLINICAL HISTORY: ITS.REASON CT Reason: elevated d dimer, chest, abdominal and back pain TECHNIQUE: Axial computed tomographic angiography images of the chest with intravenous contrast. CTDI is 8.7 mGy and DLP is 487 mGy-cm. This CT exam was performed using one or more of the following dose reduction techniques: automated exposure control, adjustment of the mA and/or kV according to patient size, and/or use of iterative reconstruction technique. MIP reconstructed images were created and reviewed. COMPARISON: No relevant prior studies available. FINDINGS: Pulmonary arteries: Unremarkable. No pulmonary embolism. Aorta: Atherosclerotic changes of the aorta. No thoracic aortic aneurysm. Lungs: Unremarkable. No mass. No consolidation. Pleural space: Unremarkable. No significant effusion. No pneumothorax. Heart: Unremarkable. No cardiomegaly. No significant pericardial effusion. No evidence of RV dysfunction. Bones/joints: Degenerative changes of the spine. No acute fracture. No dislocation. Soft tissues: Unremarkable. Lymph nodes: Unremarkable. No enlarged lymph nodes. Gallbladder and bile ducts: Mild intrahepatic and severe extrahepatic biliary ductal dilation. No definite choledocholithiasis however, consider MRCP for further evaluation. Kidneys and ureters: Bilateral renal cysts. No hydronephrosis or delayed nephrogram. Stomach and bowel: Diverticulosis, without acute diverticulitis. No small bowel obstruction. No free intraperitoneal air. Appendix: Normal appendix. IMPRESSION: 1. Mild intrahepatic and severe extrahepatic biliary ductal dilation. No definite choledocholithiasis however, consider MRCP for further evaluation. 2. Diverticulosis, without acute diverticulitis. No small bowel obstruction. No free intraperitoneal air. <MYCVCSECTION> Communications: 03/31/23 00:55 Call Doctor Regarding Addendum, called Dr. Oliva on 03/31 00:55 (-04:00)
--- NOTE | 2023-03-31 00:54 | CT ---
EXAM: CT Abdomen and Pelvis With Intravenous Contrast CLINICAL HISTORY: ITS.REASON CT Reason: abdominal pain TECHNIQUE: Axial computed tomography images of the abdomen and pelvis with intravenous contrast. CTDI is 6.6 mGy and DLP is 487 mGy-cm. This CT exam was performed using one or more of the following dose reduction techniques: automated exposure control, adjustment of the mA and/or kV according to patient size, and/or use of iterative reconstruction technique. COMPARISON: No relevant prior studies available. FINDINGS: Lung bases: Unremarkable. No mass. No consolidation. ABDOMEN: Liver: Unremarkable. No mass. Gallbladder and bile ducts: Mild intrahepatic and severe extrahepatic biliary ductal dilation. No definite choledocholithiasis however, consider MRCP for further evaluation. Pancreas: Unremarkable. No mass. No ductal dilation. Spleen: Unremarkable. No splenomegaly. Adrenals: Unremarkable. No mass. Kidneys and ureters: Bilateral renal cysts. No hydronephrosis or delayed nephrogram. Stomach and bowel: Diverticulosis, without acute diverticulitis. No small bowel obstruction. No free intraperitoneal air. PELVIS: Appendix: Normal appendix. Bladder: Unremarkable. No mass. Reproductive: Unremarkable as visualized. ABDOMEN and PELVIS: Intraperitoneal space: Unremarkable. No free air. No significant fluid collection. Bones/joints: No acute fracture. No dislocation. Soft tissues: Unremarkable. Vasculature: Unremarkable. No abdominal aortic aneurysm. Lymph nodes: Unremarkable. No enlarged lymph nodes. IMPRESSION: 1. Mild intrahepatic and severe extrahepatic biliary ductal dilation. No definite choledocholithiasis however, consider MRCP for further evaluation. 2. Normal appendix. 3. Diverticulosis, without acute diverticulitis. No small bowel obstruction. No free intraperitoneal air.
[2023-03-31] MEDS ORDERED: NALOXONE 0.4 MG/ML 1 ML VIAL IV PRN (01:01)
[2023-03-31] MEDS: SODIUM CHLORIDE 0.9% 1,000 ML IV SCH ×2 (02:10→10:04)
--- NOTE | 2023-03-31 08:55 | P.CONS ---
History of Present Illness - Reason for Consult Consult date: 03/31/23 Biliary dilation Requesting physician: Devyn Oakley - Chief Complaint Chest pain, epigastric pain, back pain - History of Present Illness Is a pleasant 82-year-old female who presented to the emergency room with complaints of abdominal pain, chest pain and back pain below that began last Monday and has continued throughout the week. She states that it has been assoc iated with some nausea. Pain is mostly in the epigastric region and radiates to the back. She denies any shortness of breath or vomiting. However she does state that she's had weight loss of 30 pounds over last 2 years duration but she states is because she is not cooking for herself as her had passed. She was noted to have elevated LFTs on admission as well as an elevated d-dimer. Kain sun underwent a CT of the abdomen and pelvis which reported mild intrahepatic and severe extrahepatic biliary ductal dilation. No definite choledochal lithiasis however consider MRCP for further evaluation. Normal appendix. Diverticulosis without acute diverticulitis. No small bowel obstruction. No free intraperitoneal air. CTA of chest reveals no pulmonary embolism, other purvis reports mild intrahepatic and severe extrahepatic biliary ductal dilation. She denies any previous history of gallbladder disease or liver disease, she denies any new medications or recent antibiotic use. Labs WBC 9.7 hemoglobin 12.9 hematocrit 39 platelet count 239,000 and INR 0.9 d-dimer 1.0 sodium 139 potassium 3.9 BUN 15 creatinine 0.9 glucose 118 total bilirubin 1.2 AST 1024 ALT 580 alkaline phosphatase 223 lipase 367 Review of Systems REVIEW OF SYSTEMS: CARDIOPULMONARY: Complains of chest pain, no shortness of breath. Gastrointestinal: Epigastric pain radiating into her back. Nausea with no vomiting. No hematemesis, coffee-ground emesis. No rectal bleeding, or melena. GENITOURINARY: No dysuria or hematuria. MUSCULOSKELETAL: Reports normal range of motion., Joint pain. SKIN: No rashes. No jaundice. ENDOCRINE: No chills, fevers. No excessive weight gain or loss. No polydipsia or polyuria. PSYCHIATRIC: Unremarkable. NEUROLOGY: No change in mental status. Denies dizziness, headache. ENT: Vision unremarkable. CONSTITUTIONAL: No recent weight loss. No fever, chills, night sweats. 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 misty cataracts Past Anesthesia/Blood Transfusion Reactions: No Reported Reaction Past Psychological History: Anxiety Smoking Status: Former smoker Past Alcohol Use History: None Reported Past Drug Use History: None Reported - Past Family History Mother Family Medical History: Cancer Son(s) Family Medical History: Cancer Medications and Allergies Home Medications Medication Instructions Recorded Confirmed Type Multivit-Min/FA/Lycopen/Lutein 1 tab PO DAILY 09/12/15 03/31/23 History [Centrum Silver Tablet] Omeprazole [PriLOSEC] 20 mg PO AC-BRKFST 09/12/15 03/31/23 History ALPRAZolam [Xanax] 0.5 mg PO TID PRN 02/17/22 03/31/23 History Atorvastatin [Lipitor] 10 mg PO DAILY 02/17/22 03/31/23 History Furosemide [Lasix] 40 mg PO DAILY 02/17/22 03/31/23 History hydrALAZINE HCL [Apresoline] 25 mg PO DAILY 03/31/23 03/31/23 History hydrALAZINE HCL [Apresoline] 25 mg PO DAILY PRN 03/31/23 03/31/23 History Allergies Allergy/AdvReac Type Severity Reaction Status Date / Time losartan Allergy Anaphylaxis Verified 03/31/23 10:54 codeine AdvReac Vomiting Verified 03/31/23 07:15 Physical Exam Vitals: Vital Signs Pulse Resp BP Pulse Ox 03/31/23 04:15 66 18 185/82 97 03/31/23 02:24 78 18 201/88 95 03/30/23 23:34 76 18 133/53 94 L 03/30/23 23:30 82 18 165/79 96 03/30/23 22:30 199/81 96 03/30/23 22:00 82 18 203/84 95 03/30/23 21:30 219/83 95 03/30/23 21:00 203/88 97 03/30/23 20:37 89 18 180/100 95 Intake and Output 06/03/30/23 03/31/23 14:59 22:59 06:59 Other: Weight 61.235 kg General appearance: The patient is alert, oriented, appears in no acute dis tress. HET: Head is normocephalic and atraumatic. Conjunctiva pink. Sclera anicteric. Neck: Supple without lymphadenopathy. Trachea midline. Heart: S1 S2. Regular rate and rhythm. Lungs: Clear to auscultation. Abdomen: Soft, epigastric tenderness, nondistended. No guarding or rigidity. Skin: No rashes. No jaundice. Extremities: Normal skin color and turgor. No pedal edema. Neurological: No focal deficits. Alert and oriented x3. Results CBC & Chem 7: 03/30/23 20:43 03/30/23 20:43 Labs: Abnormal Lab Results - Last 24 Hours (Table) 03/30/23 03/30/23 03/30/23 Range/Units 20:43 20:43 20:43 Neutrophils # 8.2 H (1.3-7.7) k/uL Lymphocytes # 0.8 L (1.0-4.8) k/uL APTT 21.8 L (22.0-30.0) sec D-Dimer 1.04 H (<0.60) mg/L FEU Glucose 119 H (74-99) mg/dL AST 1024 H (14-36) U/L ALT 580 H (4-34) U/L Alkaline Phosphatase 223 H (38-126) U/L Lipase 367 H (23-300) U/L Urine Appearance (Clear) Urine Mucus (None) /hpf 03/30/23 Range/Units 21:29 Neutrophils # (1.3-7.7) k/uL Lymphocytes # (1.0-4.8) k/uL APTT (22.0-30.0) sec D-Dimer (<0.60) mg/L FEU Glucose (74-99) mg/dL AST (14-36) U/L ALT (4-34) U/L Alkaline Phosphatase (38-126) U/L Lipase (23-300) U/L Urine Appearance Cloudy H (Clear) Urine Mucus Rare H (None) /hpf CT scan - abdomen: report reviewed CT scan - chest: report reviewed Assessment and Plan (1) Dilation of biliary tract Narrative/Plan: A 2-year-old who presented with chest pain abdominal pain and back pain was found to have significantly elevated liver function tests with mildly elevated lipase. She underwent CT of the abdomen and pelvis showing intrahepatic and severe extrahepatic ductal dilationof a choledochal lithiasis. Denies previous history of gallbladder disease or liver disease. No recent new medications or recent antibiotic use. Denies any previous history of liver disease. Unclear etiology at this time. Recommend proceeding with MRCP for further evaluation. If there is no evidence of choledocholithiasis recommend transfer to tertiary center for advanced endoscopy and possible EUS. Current Visit: Yes Status: Acute Code(s): K83.8 - OTHER SPECIFIED DISEASES OF BILIARY TRACT SNOMED Code(s): 032866107 (2) Elevated LFTs Current Visit: Yes Status: Acute Code(s): R79.89 - OTHER SPECIFIED ABNORMAL FINDINGS OF BLOOD CHEMISTRY SNOMED Code(s): 425017286 Plan: 1. Continue symptomatic and supportive care 2. Keep nothing by mouth 3. Antiemetics as needed 4. Protonix 40 mg daily for GI prophylaxis 5. MRCP ordered and pending. Based on MRCP results and if LFTS do not trend down may need to consider transfer to tertiary center with gastroenterology and advanced endoscopist. We will defer management to medicine as gastroenterology will not be available. Thank you for allowing us to participate in the care of the patient, the GI service will sign off, gastroenterology will not be available at the hospital this weekend and through next week. If further evaluation by gastroenterology is required the patient will need transfer as per the primary team's discretion. Dr. Tana Abbott I agree with the dictator's note, documented as a scribe by Destiny Braga.
[2023-03-31] MEDS ORDERED: KETOROLAC 15 MG/ML 1 ML VIAL IVP PRN (09:24)
[2023-03-31] MEDS ORDERED: ALPRAZolam 0.5 MG TAB PO PRN (09:30)
--- NOTE | 2023-03-31 09:30 | P.HPIM ---
History of Present Illness Patient is a pleasant 82-year-old female came in with complaints of severe right upper quadrant abdominal pain as well as back pain in between the shoulder blade area started about 5 days ago much severe since last night. Patient is found to have intrahepatic and extrahepatic biliary ductal dilatation along with highly elevated liver enzymes. Gastric probably evaluated the patient patient will undergo MRCP. Patient doesn't have any gallstones. Patient denied recent cigarette in weight loss but patient has been losing weight for last 2 years. She also had nausea vomiting REVIEW OF SYSTEMS: CONSTITUTIONAL: No fever, no malaise, no fatigue. HEENT: No recent visual problems or hearing problems. Denied any sore throat. CARDIOVASCULAR: No chest pain, orthopnea, PND, no palpitations, no syncope. PULMONARY: No shortness of breath, no cough, no hemoptysis. GASTROINTESTINAL: As mentioned in HPI NEUROLOGICAL: No headaches, no weakness, no numbness. HEMATOLOGICAL: Denies any bleeding or petechiae. GENITOURINARY: Denies any burning micturition, frequency, or urgency. MUSCULOSKELETAL/RHEUMATOLOGICAL: Denies any joint pain, swelling, or any muscle pain. ENDOCRINE: Denies any polyuria or polydipsia. The rest of the 14-point review of systems is negative. PHYSICAL EXAMINATION: GENERAL: The patient is alert and oriented x3, not in any acute distress. Well developed, well nourished. HEENT: Pupils are round and equally reacting to light. EOMI. No scleral icterus. No conjunctival pallor. Normocephalic, atraumatic. No pharyngeal erythema. No thyromegaly. CARDIOVASCULAR: S1 and S2 present. No murmurs, rubs, or gallops. PULMONARY: Chest is clear to auscultation, no wheezing or crackles. ABDOMEN: Tenderness the right upper quadrant nondistended, normoactive bowel sounds. No palpable organomegaly. MUSCULOSKELETAL: No joint swelling or deformity. EXTREMITIES: No cyanosis, clubbing, or pedal edema. NEUROLOGICAL: Gross neurological examination did not reveal any focal deficits. SKIN: No rashes. Assessment and plan -Biliary ductal dilatation: Patient will undergo MRCP to further evaluate patho logy causing ductal dilatation. Patient doesn't have any gallstones -Transaminitis secondary to extrahepatic biliary obstruction -Hypertension -History of breast cancer DVT prophylaxis: Lovenox Past Medical History Past Medical History: Cancer, Fibromyalgia, GERD/Reflux, Hypertension, Osteoarthritis (OA) Additional Past Medical History / Comment(s): varicose veins, breast cancer History of Any Multi-Drug Resistant Organisms: None Reported Past Surgical History: Appendectomy, Hysterectomy, Tonsillectomy Additional Past Surgical History / Comment(s): benign TUMOR FROM STOMACH REMOVED. misty cataracts Past Anesthesia/Blood Transfusion Reactions: No Reported Reaction Past Psychological History: Anxiety Smoking Status: Former smoker Past Alcohol Use History: None Reported Past Drug Use History: None Reported - Past Family History Mother Family Medical History: Cancer Son(s) Family Medical History: Cancer Medications and Allergies Home Medications Medication Instructions Recorded Confirmed Type Multivit-Min/FA/Lycopen/Lutein 1 tab PO DAILY 09/12/15 03/31/23 History [Centrum Silver Tablet] Omeprazole [PriLOSEC] 20 mg PO AC-BRKFST 09/12/15 03/31/23 History ALPRAZolam [Xanax] 0.5 mg PO TID PRN 02/17/22 03/31/23 History Atorvastatin [Lipitor] 10 mg PO DAILY 02/17/22 03/31/23 History Furosemide [Lasix] 40 mg PO DAILY 02/17/22 03/31/23 History hydrALAZINE HCL [Apresoline] 25 mg PO DAILY 03/31/23 03/31/23 History hydrALAZINE HCL [Apresoline] 25 mg PO DAILY PRN 03/31/23 03/31/23 History Allergies Allergy/AdvReac Type Severity Reaction Status Date / Time codeine AdvReac Vomiting Verified 03/31/23 07:15 Physical Exam Vitals: Vital Signs Temp Pulse Resp BP Pulse Ox 03/31/23 08:00 97 F L 72 16 190/84 97 03/31/23 04:15 66 18 185/82 97 03/31/23 02:24 78 18 201/88 95 03/30/23 23:34 76 18 133/53 94 L 03/30/23 23:30 82 18 165/79 96 03/30/23 22:30 199/81 96 03/30/23 22:00 82 18 203/84 95 03/30/23 21:30 219/83 95 03/30/23 21:00 203/88 97 03/30/23 20:37 89 18 180/100 95 Intake and Output 03/30/23 03/31/23 03/31/23 22:59 06:59 14:59 Other: Weight 61.235 kg Results CBC & Chem 7: 03/30/23 20:43 03/30/23 20:43 Labs: Abnormal Lab Results - Last 24 Hours (Table) 03/30/23 03/30/23 03/30/23 Range/Units 20:43 20:43 20:43 Neutrophils # 8.2 H (1.3-7.7) k/uL Lymphocytes # 0.8 L (1.0-4.8) k/uL APTT 21.8 L (22.0-30.0) sec D-Dimer 1.04 H (<0.60) mg/L FEU Glucose 119 H (74-99) mg/dL AST 1024 H (14-36) U/L ALT 580 H (4-34) U/L Alkaline Phosphatase 223 H (38-126) U/L Lipase 367 H (23-300) U/L Urine Appearance (Clear) Urine Mucus (None) /hpf 03/30/23 Range/Units 21:29 Neutrophils # (1.3-7.7) k/uL Lymphocytes # (1.0-4.8) k/uL APTT (22.0-30.0) sec D-Dimer (<0.60) mg/L FEU Glucose (74-99) mg/dL AST (14-36) U/L ALT (4-34) U/L Alkaline Phosphatase (38-126) U/L Lipase (23-300) U/L Urine Appearance Cloudy H (Clear) Urine Mucus Rare H (None) /hpf
[2023-03-31] MEDS: KETOROLAC 15 MG/ML 1 ML VIAL IVP PRN ×2 (10:46→18:54)
[2023-03-31] MEDS: hydrALAZINE HCL 25 MG TAB PO PRN (13:26)
--- NOTE | 2023-03-31 16:54 | MR ---
EXAMINATION TYPE: MR MRCP DATE OF EXAM: 03/31/2023 4:06 PM CLINICAL INDICATION:Female, 82 years old with history of elevated LFTS, intra/extrahepatic misty dilati on; COMPARISON: CT 03/30/2023, 04/19/2016 TECHNIQUE: Multi planar, T2-weighted imaging with and without fat saturation and chemical shift imag ing was performed of the abdomen. Then, heavily T2 weighted imaging (half-Fourier acquisition single- shot turbo spin-echo) was utilized in order to study the biliary system. Maximum intensity projectio n images were reconstructed from the original data of the biliary tree. 3D images were created on [employer] work station. No Gadolinium given. FINDINGS: MRCP: The intrahepatic ducts mildly dilated centrally. The extrahepatic biliary system is also dilat ed. The common hepatic duct measures 15 mm in size. The common bile duct at the level of the pancreat ic head measures 10 mm in size. . There is mild narrowing just before the papilla down to 2 mm in siz e. There may be a 2 mm gallstone at the papilla series 901 image 11. The pancreatic duct is normal. The gallbladder demonstrates multiple layering gallstones. Abdomen: Liver: Unremarkable. Pancreas: A T2 signal focus measuring 4 mm in the pancreatic head likely representing intraductal pap illary mucinous neoplasm. Spleen: Small splenules noted. Adrenal glands: Unremarkable. Kidneys: 15 mm right renal cyst with possible thin septation additional other cysts which appear more simple. Stomach and Bowel: Unremarkable as visualized. Scattered colonic diverticula present. Peritoneum: No evidence of pneumoperitoneum, free fluid, or adenopathy. Vasculature: Unremarkable. No aortic aneurysm. Abdominal wall: Unremarkable. Musculoskeletal: The osseous structures appear intact. IMPRESSION: 1. Intrahepatic and extra hepatic biliary dilation which somewhat abruptly narrows near the papilla. Possible 2 mm stone at the papilla. ERCP for is recommended for further evaluation to rule out under lying mass. 2. Cholelithiasis. 3. 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 4. Right renal cyst.
[2023-03-31] MEDS ORDERED: FAMOTIDINE 20 MG TAB PO SCH (21:00)
[2023-04-01] MEDS: SODIUM CHLORIDE 0.9% 1,000 ML IV SCH ×2 (01:35→15:33)
[2023-04-01] MEDS: KETOROLAC 15 MG/ML 1 ML VIAL IVP PRN ×3 (06:21→12:39)
[2023-04-01] MEDS: hydrALAZINE HCL 25 MG TAB PO PRN (07:18)
[2023-04-01 07:22] VITALS: BP 177/74; PULSE 75; RESP 17; TEMP 97.6
[2023-04-01] MEDS ORDERED: PANTOPRAZOLE 40 MG TABLET PO SCH (07:30)
[2023-04-01 08:48] LABS: AST 628 U/L (14-36); African American GFR (CKD) >90 (>60 ml/min/1.73 sqM); Albumin 3.7 g/dL (3.5-5.0); Albumin/Globulin Ratio 1.5; Alkaline Phosphatase 295 U/L (38-126); Anion Gap 7 mmol/L; Blood Urea Nitrogen 13 mg/dL (7-17); Calcium 8.8 mg/dL (8.4-10.2); Carbon Dioxide 26 mmol/L (22-30); Chloride 107 mmol/L (98-107); Globulin 2.5 g/dL; Glucose 84 mg/dL (74-99); Non-African American GFR(CKD) 88 (>60 ml/min/1.73 sqM); Potassium 3.7 mmol/L (3.5-5.1); Sodium 140 mmol/L (137-145); Total Bilirubin 3.8 mg/dL (0.2-1.3); Total Protein 6.2 g/dL (6.3-8.2)
[2023-04-01 08:55] LABS: ALT 871 U/L (4-34)
[2023-04-01] MEDS ORDERED: ATORVASTATIN 10 MG TAB PO SCH (09:00)
[2023-04-01] MEDS ORDERED: ENOXAPARIN 40 MG/0.4 ML SYRINGE SQ SCH ×2 (09:00)
--- NOTE | 2023-04-01 14:28 | P.DS ---
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 -Transaminitis secondary to extrahepatic biliary obstruction -Hyperbilirubinemia possibly gallstone pancreatitis -Hypertension -History of breast cancer -Elevated D-Dimer CTA reveals no pulmonary embolism Full Code Discharge Disposition Patient is stable for transfer to tertiary care center for higher level of care require GI consultation which is currently unavailable at this facility. Patient requires ERCP for further evaluation of the possible stone and to rule out underlying neoplasm. Patient and family updated on transfer plan and patient has a bed at [facility] accepted under Dr. Garner and GI consultation. Patient is currently maintained on clear liquid diet as tolerated. Hospital Course Patient is a pleasant 82-year-old female came in with complaints of severe right upper quadrant abdominal pain as well as back pain in between the shoulder blade area started about 5 days ago much severe since last night. Patient is found to have intrahepatic and extrahepatic biliary ductal dilatation along with highly elevated liver enzymes. Patient denied recent cigarette in weight loss but patient has been losing weight for last 2 years. She also had nausea vomiting. Gastric probably evaluated the patient and recommended MRCP which was done and reveals intrahepatic and extrahepatic biliary dilation which somewhat abruptly narrows near the papilla. Possible 2 mm stone at the papilla. ERCP recommended to rule out underlying mass. 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 Patient nausea and vomiting has improved does continue with mid back pain dull achy and worse after eating. Patient is continued on clear liquid diet as tolerated. CT abdomen pelvis completed on admission did not reveal definite choledocholelisthiasis. Was evaluated by GI doctor Shlomo Abbott who recommended the MRCP for further evalution and GI services are now unavailable in this hospital for the next 14 days. Bilirubin level today elevated at 3.8 with continued elevation of the transaminases. Lipase was 367 on admission. Covid is negative. Urinalysis not indicative of infection cloudy with rate mucus. CBC reveals no elevated white count and normal hemoglobin. Patient denies shortness of breath no chest pain. Alert x 3 and neurological exam is negative for focal deficits. Patient is afebrile and on room air. Will be transferred to [facility] today. Please see medication reconciliation for a list of current medication. Thank you for allowing us to participate in the care of this patient. The impression and plan of care has been dictated by Neha Stearns, Nurse Practitioner as directed. Dr. Thomas MD I have performed a history and physical examination and medical decision making of this patient, discussed the same with the dictator, and agree with the dictators assessment and plan as written, documented as a scribe. Based on total visit time, I have performed more than 50% of this visit. Patient Condition at Discharge: Stable Plan - Discharge Summary Discharge Rx Participant: No New Discharge Prescriptions: No Action Omeprazole [PriLOSEC] 20 mg PO AC-BRKFST Multivit-Min/FA/Lycopen/Lutein [Centrum Silver Tablet] 1 tab PO DAILY ALPRAZolam [Xanax] 0.5 mg PO TID PRN PRN Reason: Anxiety Atorvastatin [Lipitor] 10 mg PO DAILY Furosemide [Lasix] 40 mg PO DAILY hydrALAZINE HCL [Apresoline] 25 mg PO DAILY PRN PRN Reason: High BP hydrALAZINE HCL [Apresoline] 25 mg PO DAILY Discharge Medication List Multivit-Min/FA/Lycopen/Lutein [Centrum Silver Tablet] 1 tab PO DAILY 09/12/15 [History] Omeprazole [PriLOSEC] 20 mg PO AC-BRKFST 09/12/15 [History] ALPRAZolam [Xanax] 0.5 mg PO TID PRN 02/17/22 [History] Atorvastatin [Lipitor] 10 mg PO DAILY 02/17/22 [History] Furosemide [Lasix] 40 mg PO DAILY 02/17/22 [History] hydrALAZINE HCL [Apresoline] 25 mg PO DAILY 03/31/23 [History] hydrALAZINE HCL [Apresoline] 25 mg PO DAILY PRN 03/31/23 [History] Follow up Appointment(s)/Referral(s): Kalin Rodriguez MD [Primary Care Provider] - 1-2 days Activity/Diet/Wound Care/Special Instructions: Patient has been accepted by Dr. Garner of [facility] currently awaiting a bed assignment Discharge Disposition: OTHER INSTITUTION NOT DEFINED
[2023-04-01] MEDS ORDERED: KETOROLAC 15 MG/ML 1 ML VIAL IVP STA (15:53)
== END 2023-04-01 16:38 | disposition short-term general hospital (02) | DRG 444 ==
LOC: EC 20:34 → 4SSUR 03-31 01:02 → 5NMEDONC 03-31 16:15
PROVIDERS: ADMIT Internal Medicine; ATTEND Internal Medicine
DX: K80.65 Calculus of gallbladder and bile duct with chronic cholecystitis with obstruction (principal); K85.10 Biliary acute pancreatitis without necrosis or infection; M19.90 Unspecified osteoarthritis, unspecified site; M79.7 Fibromyalgia; Z20.822 Contact with and (suspected) exposure to COVID-19; R74.01 Elevation of levels of liver transaminase levels; I83.90 Asymptomatic varicose veins of unspecified lower extremity; K86.89 Other specified diseases of pancreas; N28.1 Cyst of kidney, acquired; K21.9 Gastro-esophageal reflux disease without esophagitis; Z79.82 Long term (current) use of aspirin; Z79.899 Other long term (current) drug therapy; Z90.710 Acquired absence of both cervix and uterus; Z85.3 Personal history of malignant neoplasm of breast; Z88.8 Allergy status to other drugs, medicaments and biological substances; Z88.5 Allergy status to narcotic agent; Z98.42 Cataract extraction status, left eye; Z98.41 Cataract extraction status, right eye; Z87.19 Personal history of other diseases of the digestive system
CPT/HCPCS: 36415; 71275; 74177; 74181; 80053; 81001; 83605; 83690; 83735; 84484; 85025; 85379; 85610; 85730; 87635; 93005; 96374; 96375; 99285

== ENCOUNTER → 2023-05-11 | Outpatient (CLI) | payer MEDICARE ==
--- NOTE | 2023-05-12 07:38 | MM ---
Reason for Exam: Screening (asymptomatic). Last mammogram was performed 1 year(s) and 1 month(s) ago. Patient History: Menarche at age 13. First Full-Term at age 21. Left ovary removed at age 31. Right ovary removed at age 31. Hysterectomy at age 31. Postmenopausal. Breast cancer, left, age 76. Previous chest radiation therapy at age 76. Benign Cyst Aspiration on the right side. 2016, Lumpectomy on the Left side. 09/13/2016, Malignant Core Biopsy on the left side. 08/29/2016, Malignant Core Biopsy on the left side. 2016, Radiation Therapy on the left side. Mother had breast cancer, age 40. Prior Study Comparison: 06/03/2019 Bilateral Diagnostic Mammogram, [facility]. 08/10/2020 Bilateral Screening Mammogram, [facility]. 04/01/2022 Bilateral MG 3D screening mammo w/cad, [facility]. Tissue Density: The breast tissue is heterogeneously dense. This may lower the sensitivity of mammography. Findings: Analyzed By CAD. There is no suspicious group of microcalcifications or new suspicious mass in either breast. Stable postoperative changes left breast. Overall Assessment: Benign, BI-RAD 2 Management: Screening Mammogram of both breasts in 1 year. . Patient should continue monthly self-breast exams. A clinical breast exam by your physician is recommended on an annual basis. This exam should not preclude additional follow-up of suspicious palpable abnormalities. Note on Bambi scores and lifetime risk: 1. A Bambi score greater than 3% is considered moderate risk. If this is the case, consider specialist referral to assess eligibility for a risk reducing agent. 2. If overall lifetime risk for the development of breast cancer is 20% or higher, the patient may qualify for future screening with alternating mammogram and breast MRI. Electronically signed and approved by: Curtis Gonzalez M.D. Radiologis
== END | disposition home or self-care (01) ==
LOC: RADMAMWWP 12:36
PROVIDERS: ATTEND Internal Medicine Geriatric Medicine
DX: Z12.31 Encounter for screening mammogram for malignant neoplasm of breast (principal); Z78.0 Asymptomatic menopausal state; Z80.3 Family history of malignant neoplasm of breast
CPT/HCPCS: 77063; 77067

== ENCOUNTER → 2023-05-19 | Outpatient (CLI) | payer MEDICARE ==
--- NOTE | 2023-05-19 15:32 | BD ---
EXAMINATION TYPE: Axial Bone Density DATE OF EXAM: 05/19/2023 CLINICAL HISTORY: 82 years old Female. 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 History of Fracture in Adulthood: yes Secondary Osteoporosis: 1. Type 1 Diabetes: no 2. Hyperthyroidism: no 3. Menopause before 45: no 4. Malnutrition: no 5. Chronic liver disease: no Rheumatoid Arthritis: no Current Tobacco Use: no RISK FACTORS HISTORY OF: History of Wrist Fracture: rt arm Surgery to Spine/Hip(right/left)/Wrist (right/left): no Family History of Osteoporosis: no Active: yes Diet low in dairy products/other sources of calcium: yes Postmenopausal woman: yes Lost more than 2 inches in height since high school: no MEDICATIONS: Additional History: EXAM MEASUREMENTS: Bone mineral densitometry was performed using the [employer] System. Bone mineral density as measured about the Lumbar spine is: ----- L1-L4(G/cm2): 1.205 T Score Values are as follows: ----- L1: 0.4 ----- L2: -0.2 ----- L3: 0.3 ----- L4: 0.2 ----- L1-L4: 0.2 Z Score Values are as follows: ----- L1: 2.4 ----- L2: 1.7 ----- L3: 2.2 ----- L4: 2.1 ----- L1-L4: 2.1 Bone mineral density has: increased 0.1 % since study of: 08.10.2020 Bone mineral density about the R hip (g/cm2): 0.824 Bone mineral density about the L hip (g/cm2): 0.843 T Score values are as follows: -----R Neck: -2.2 -----L Neck: -1.8 -----R Total: -1.5 -----L Total: -1.3 Z Score values are as follows: -----R Neck: 0.1 -----L Neck: 0.4 -----R Total: 0.7 -----L Total: 0.8 Bone mineral density has: decreased -6.3 % since study of: 08.10.2020 FRAX%s: The graph provided illustrates a 24.5% chance for a major osteoporotic fx and a 7.6% chance f or the hips probability for fx in 10 years time. IMPRESSION: Osteopenia (T Score between -2.5 and -1). There is slightly increased risk of fracture and the patient may be considered for treatment. Re-Screen 2-5 years. NOTE: T-SCORE=SD OF THE YOUNG ADULT MEAN.
== END | disposition home or self-care (01) ==
LOC: RADBDWWP 14:51
PROVIDERS: ATTEND Internal Medicine Geriatric Medicine
DX: M81.0 Age-related osteoporosis without current pathological fracture (principal); M85.89 Other specified disorders of bone density and structure, multiple sites; Z78.0 Asymptomatic menopausal state
CPT/HCPCS: 77080

== ENCOUNTER → 2023-05-23 | Outpatient (CLI) | payer MEDICARE ==
--- NOTE | 2023-05-23 10:31 | US ---
EXAMINATION TYPE: US abdomen complete DATE OF EXAM: 05/23/2023 COMPARISON: ct 7-16 CLINICAL INDICATION: Female, 82 years old with history of K80.20 CALCULUS OF GALLBLADDER; follow up o n known gb stones per pt TECHNIQUE: Multiple sonographic images of the abdomen are obtained. FINDINGS: EXAM MEASUREMENTS: Liver Length: 13.4 cm Gallbladder Wall: 0.2 cm CBD: 1.0 cm Spleen: 9.0 cm Right Kidney: 10.0 x 4.1 x 4.5 cm Left Kidney: 9.8 x 5.4 x 5.0 cm HERD TESTER NOTES: Pancreas: wnl Liver: wnl Gallbladder: contracted with multiple stones Evidence for sonographic Pabon's sign: no CBD: dilated Spleen: wnl Right Kidney: seen with a 1.4cm septated cyst at the lower pole Left Kidney: wnl Upper IVC: wnl Abd Aorta: calcified wall The liver is homogenous. The intrahepatic portion of the IVC and proximal abdominal aorta are within normal limits. The visualized portions of the pancreas are homogenous. The spleen is unremarkable. Kidneys are symmetric and free of hydronephrosis. No renal lesions are seen. IMPRESSION: 1. The gallbladder is contracted with multiple gallstones noted. No wall thickening. Cholecystic flui d. Common bile duct is dilated at 1 cm.
--- NOTE | 2023-05-23 10:32 | XR ---
EXAMINATION TYPE: XR Hip Complete LT DATE OF EXAM: 05/23/2023 CLINICAL HISTORY: pain TECHNIQUE: AP and frogleg views of the left hip are obtained. COMPARISON: None. FINDINGS: There is no acute fracture/dislocation evident. The joint space appears within normal li mits. The overlying soft tissue appears unremarkable. There is cystic lesion at the level of the lef t ischium measuring 1.7 cm and may reflect a simple bone cyst. If there is history of primary maligna ncy further workup is indicated. IMPRESSION: 1. There is no acute fracture or dislocation. 2.There is cystic lesion at the level of the left ischium measuring 1.7 cm and may reflect a simple b one cyst. If there is history of primary malignancy further workup is indicated.
== END | disposition home or self-care (01) ==
LOC: RADUSWWP 09:32
PROVIDERS: ATTEND Internal Medicine Geriatric Medicine
DX: K80.20 Calculus of gallbladder without cholecystitis without obstruction (principal); M25.552 Pain in left hip
CPT/HCPCS: 73502; 76700

== ENCOUNTER → 2024-05-17 | Outpatient (CLI) | payer MEDICARE ==
--- NOTE | 2024-06-12 11:21 | MM ---
Reason for Exam: Hx of breast cancer, conservation therapy. Last mammogram was performed 1 year(s) and 1 month(s) ago. Patient History: Menarche at age 13. First Full-Term at age 21. Left ovary removed at age 31. Right ovary removed at age 31. Hysterectomy at age 31. Postmenopausal. Breast cancer, left, age 76. Previous chest radiation therapy at age 76. Benign Cyst Aspiration on the right side. 2015, Lumpectomy on the Left side. 09/13/2016, Malignant Core Biopsy on the left side. 08/29/2016, Malignant Core Biopsy on the left side. 2016, Radiation Therapy on the left side. Mother had breast cancer, age 40. Prior Study Comparison: 08/29/2016 Left Diagnostic Mammogram, [facility]. 07/03/2017 Bilateral Diagnostic Mammogram, [facility]. 05/29/2018 Bilateral Diagnostic Mammogram, [facility]. 06/03/2019 Bilateral Diagnostic Mammogram, [facility]. 08/10/2020 Bilateral Screening Mammogram, [facility]. 04/01/2022 Bilateral MG 3D screening mammo w/cad, [facility]. 05/11/2023 Bilateral MG 3D screening mammo w/cad, [facility]. Tissue Density: There are scattered areas of fibroglandular density. Findings: Analyzed By CAD. Left breast surgical clips. Right breast: There is no suspicious group of microcalcifications or new suspicious mass. Left breast: There is no suspicious group of microcalcifications or new suspicious mass. Benign-appearing calcifications left breast. Calcification is likely post surgical/treatment changes. Overall Assessment: Benign, BI-RAD 2 Management: Screening Mammogram of both breasts in [address] [facility] will attempt to contact patient to return for supplemental views and ultrasound if indicated. Patient should continue monthly self-breast exams. A clinical breast exam by your physician is recommended on an annual basis. This exam should not preclude additional follow-up of suspicious palpable abnormalities. Note on Bambi scores and lifetime risk: 1. A Bambi score greater than 3% is considered moderate risk. If this is the case, consider specialist referral to assess eligibility for a risk reducing agent. 2. If overall lifetime risk for the development of breast cancer is 20% or higher, the patient may qualify for future screening with alternating mammogram and breast MRI. Electronically signed and approved by: Gurpreet Zuluaga DO
== END | disposition home or self-care (01) ==
LOC: RADMAMWWP 09:25
PROVIDERS: ATTEND Internal Medicine Geriatric Medicine
DX: Z12.31 Encounter for screening mammogram for malignant neoplasm of breast (principal); R92.323 Mammographic fibroglandular density, bilateral breasts; Z80.3 Family history of malignant neoplasm of breast; Z78.0 Asymptomatic menopausal state
CPT/HCPCS: 77063; 77067

== ENCOUNTER → 2024-12-16 | Outpatient (CLI) | payer MEDICARE ==
[2024-12-16 08:32] LABS: African American GFR (CKD) 88 (>60 ml/min/1.73 sqM); Blood Urea Nitrogen 14 mg/dL (7-17); Non-African American GFR(CKD) 77 (>60 ml/min/1.73 sqM)
--- NOTE | 2024-12-16 09:33 | CT ---
EXAMINATION TYPE: CT angio neck DATE OF EXAM: 12/16/2024 9:24 AM COMPARISON: None. CLINICAL INDICATION: Female, 84 years old with history of I65.139 carotid stenosis, , TECHNIQUE: Axially acquired helical CT Angiogram of the Neck was obtained with and without contrast. Axial images are supplemented with coronal and sagittal MIP reconstructions. 3D reconstructions were also performed and were post-processed at an independent workstation. Estimated carotid stenosis was calculated using the NASCET criteria. IV CONTRAST: , patient injected with 100 mL of Isovue 300. (None if empty) CT DLP: mGycm, Automated exposure control for dose reduction was used. FINDINGS: Right carotid system: Mild plaque is seen of the right common carotid artery. There is mild plaque a lso noted at the carotid bulb. Estimated diameter reduction is estimated at 50%.. ECA is patent. Right vertebral artery appears unremarkable. Left carotid system: Mild plaque is seen of the left common carotid artery. There is moderate plaque also noted at the proximal left ICA with critical stenosis of greater than 95%. ECA is patent. Left vertebral artery appears unremarkable. IMPRESSION: 1. Critical stenosis proximal left ICA of approximately 95%. 2. Estimated diameter reduction right ICA of 50%. [facility], , 12/16/2024 9:30 AM
== END | disposition home or self-care (01) ==
LOC: RADCTMAIN 07:49
PROVIDERS: ATTEND Internal Medicine Interventional Cardiology
DX: I65.03 Occlusion and stenosis of bilateral vertebral arteries (principal)
CPT/HCPCS: 82565; 84520; 70498; 36415; Q9967

== ENCOUNTER 2025-01-29 06:48 | Inpatient (IN) | payer MEDICARE ==
[2025-01-27 14:45] VITALS: BMI 27.3
[2025-01-29] MEDS ORDERED: ALPRAZolam 0.5 MG TAB PO PRN ×2 (06:57→10:25)
[2025-01-29] MEDS ORDERED: CLOPIDOGREL 75 MG TAB PO PRN (07:00)
[2025-01-29] MEDS: SODIUM CHLORIDE 0.9% 1,000 ML in EMPTY BAG 1 BAG IV ONE (07:19)
[2025-01-29] MEDS: IV FLUID CONTINUATION 1,000 ML IV ONE (07:19)
[2025-01-29 07:25] LABS: Basophils # (A) 0.06 10*3/uL (0.00-0.10); Basophils % (A) 0.7 %; Eosinophils # (A) 0.13 10*3/uL (0.04-0.35); Eosinophils % (A) 1.6 %; HCT 41.1 % (37.2-46.3); HGB 13.7 g/dL (12.0-15.0); Lymphocytes # (A) 1.73 10*3/uL (0.90-5.00); Lymphocytes % (A) 21.4 %; MCH 32.2 pg (27.0-32.0); MCHC 33.3 g/dL (32.0-37.0); MCV 96.5 fL (80.0-97.0); Mean Platelet Volume 9.6 fL (9.5-12.2); Monocytes % (A) 8.7 %; Neutrophils # (A) 5.44 10*3/uL (1.80-7.70); Neutrophils % (A) 67.2 %; Platelet Count 297 10*3/uL (140-440); RBC 4.26 10*6/uL (4.10-5.20); RDW 12.4 % (11.5-14.5); WBC 8.09 10*3/uL (4.50-10.00)
[2025-01-29] MEDS: ASPIRIN 81 MG PO PRN (07:31)
[2025-01-29 07:49] LABS: African American GFR (CKD) 71 (>60 ml/min/1.73 sqM); Anion Gap 9 mmol/L; Blood Urea Nitrogen 17 mg/dL (7-17); Calcium 10.2 mg/dL (8.4-10.2); Carbon Dioxide 31 mmol/L (22-30); Chloride 100 mmol/L (98-107); Glucose 106 mg/dL (74-99); Non-African American GFR(CKD) 62 (>60 ml/min/1.73 sqM); Potassium 3.4 mmol/L (3.5-5.1); Sodium 140 mmol/L (137-145)
[2025-01-29] MEDS ORDERED: RX INFO: IV CONTRAST WAS GIVEN 1 EACH MISC MISCELLANE PRN (09:00)
[2025-01-29] MEDS: TICAGRELOR 90 MG TAB PO ONE (09:02)
[2025-01-29] MEDS: LIDOCAINE 1% INJ 10MG/ML (20 ML MDV) SQ ONE (09:06)
[2025-01-29] MEDS: MORPHINE SULFATE 4 MG/ML SYRINGE IVP ONE (09:20)
[2025-01-29] MEDS: HEPARIN SODIUM 1,000 UN/ML (10ML VL) IV ONE (09:21)
[2025-01-29] MEDS: IOPAMIDOL-370 100ML BTL INJ ONE (10:03)
[2025-01-29] MEDS ORDERED: MAG HYDROX/AL HYDROX/SIMETH 30 ML CUP PO PRN (10:26)
--- NOTE | 2025-01-29 10:37 | P.PCN ---
Date of Procedure: 01/29/25 Operative Findings: Stenting of the left internal carotid artery Performing physician and Rajiv Garcia MD Procedure performed 1. Successful stenting of the left common and left internal carotid artery using 68 x 40 mm Acculimk carotid stent with an excellent angiographic results 2. Selective left common and left internal carotid artery angiogram and intracranial angiogram as well as an aortic arch angiogram and right common femoral artery angiogram 3. Ultrasound-guided access of the right common femoral artery and ultrasound- guided access of the right common femoral vein 4. Placement of TVP from the right common femoral vein Indication Symptomatic 84-year-old female patient who was diagnosed recently with critical disease involving the left internal carotid artery documented on carotid CTA Approach Right common femoral artery Complication None Level of sedation The procedure was performed with no sedation with the procedure length 60 minutes Procedure description After obtaining informed consent the patient was brought to the cardiac [employer]. Giving the patient history of bradycardia from before I decided to place a temporary pacemaker from the right common femoral vein. The right common femoral vein was cannulated using micropuncture technique under ultrasound guidance the micropuncture wire passed easily then I placed a 6 [place] sheath at the right common femoral vein and under fluoroscopy guidance a balloontipped temporary pacemaker was advanced to the right ventricle then after that I did set the pacer to be at heart rate of 60 for a backup. The right common femoral artery was cannulated using micropuncture technique under ultrasound guidance the micropuncture wire passed easily then I placed a 6 [place] 90 cm shuttle sheath at the right common femoral artery over a 035 stiff Glidewire and the sheath was advanced all the way to the proximal descending aorta. That was performed under fluoroscopy guidance. Subsequently using a pigtail catheter was placed at the ascending aorta and angiogram was performed of the aortic arch using bulbar injection and digital subtraction which showed type I aortic arch. Subsequently I did engage the left common carotid artery using JB2 catheter and then I did advance the shuttle sheath over the JB2 catheter and stiff Glidewire which was positioned in the left external carotid artery. The shuttle sheath was advanced to the mid left common carotid artery. Selective left common and left internal carotid artery angiogram was performed which confirmed critical disease involving the proximal left internal carotid artery right after the takeoff from the left common carotid artery. Anticoagulation was initiated usi ng heparin and at the beginning of the procedure antiplatelet was given using Brilinta with a loading dose of 180 mg. Subsequently I did place a filter wire in the distal left internal carotid artery. Please note that the filter was prepped using saline and we assured that there was no bubbles in the filter system whatsoever. Subsequently I predilated using 4 mm balloon before I deployed the 6-8 x 40 mm Acculink carotid stent where the stent was positioned under fluoroscopy guidance and deployed and postdilated initially using 5 mm balloon and subsequently 5.5 mm balloon with angiogram was taken after showed excellent results with reduction of stenosis from 99% to about 20%. The procedure was completed with no complication. Continuous ACT monitoring was performed throughout the procedure. I did after that I exchanged my long sheath into short sheath which was 11 cm 6 [place] sheath over a 035 stiff Glidewire before I did selective right common femoral artery angiogram. Please note that TVP was pulled out after the procedure Postprocedure management ICU monitoring Monitor the blood pressure and support the pressure if the pressure drop Continue dual antiplatelet therapy along with a statin Discharge in the next 24 hours if the patient remains stable
[2025-01-29] MEDS: ATROPINE SULFATE 0.1 MG/ML 10ML SYRINGE IV PRN (11:21)
[2025-01-29] MEDS: ONDANSETRON 4 MG/2 ML VIAL IVP PRN (11:25)
[2025-01-29] MEDS: hydrALAZINE HCL 25 MG TAB PO SCH (16:34)
[2025-01-29 18:31] LABS: Glucose,Whole Blood 119 mg/dL (70-110)
--- NOTE | 2025-01-29 18:39 | IR ---
EXAMINATION TYPE: IR stent intravas non coronary Intraoperative/procedural fluoroscopic services were provided. CLINICAL INDICATION:Female, 84 years old with history of TIA, 12.9m/0.0788DAP, Rt gr: A sut in P ba g att V-Vascad; , [facility] FINDINGS: Multiple fluoroscopic images provided for carotid stent placement. Total fluoroscopy time is 12.9 min. DAP: 15.7 Gycm2 Please see the operative/procedural note for further details. [facility], , 01/29/2025 6:37 PM
[2025-01-29] MEDS: TICAGRELOR 90 MG TAB PO SCH (21:02)
[2025-01-29] MEDS: ALPRAZolam 0.25 MG TAB PO PRN (21:02)
[2025-01-29] MEDS: ATORVASTATIN 40 MG TAB PO SCH (21:02)
[2025-01-29] MEDS: SODIUM CHLORIDE 0.9% 1,000 ML IV SCH (21:03)
[2025-01-29 22:29] LABS: Glucose,Whole Blood 110 mg/dL (70-110)
[2025-01-29] MEDS: SODIUM CHLORIDE 0.9% 500 ML 500 ML IV ONE (22:30)
[2025-01-29] MEDS: HYDROmorphone 2 MG/ML 1 ML SYRINGE IVP PRN (22:34)
[2025-01-29 23:34] LABS: Basophils # (A) 0.05 10*3/uL (0.00-0.10); Basophils % (A) 0.3 %; Eosinophils # (A) 0.06 10*3/uL (0.04-0.35); Eosinophils % (A) 0.4 %; HCT 30.8 % (37.2-46.3); Lymphocytes # (A) 1.01 10*3/uL (0.90-5.00); Lymphocytes % (A) 6.1 %; MCH 32.7 pg (27.0-32.0); MCHC 32.8 g/dL (32.0-37.0); MCV 99.7 fL (80.0-97.0); Mean Platelet Volume 10.1 fL (9.5-12.2); Monocytes # (A) 1.12 10*3/uL (0.20-1.00); Monocytes % (A) 6.8 %; Neutrophils % (A) 85.9 %; Platelet Count 230 10*3/uL (140-440); RBC 3.09 10*6/uL (4.10-5.20); RDW 12.6 % (11.5-14.5); WBC 16.43 10*3/uL (4.50-10.00)
[2025-01-30 00:46] LABS: HGB 10.1 g/dL (12.0-15.0)
[2025-01-30] MEDS: PANTOPRAZOLE 40 MG TABLET PO SCH (06:23)
[2025-01-30 06:55] LABS: Basophils # (A) 0.03 10*3/uL (0.00-0.10); Basophils % (A) 0.3 %; Eosinophils # (A) 0.02 10*3/uL (0.04-0.35); Eosinophils % (A) 0.2 %; HCT 29.3 % (37.2-46.3); HGB 9.3 g/dL (12.0-15.0); Lymphocytes # (A) 1.17 10*3/uL (0.90-5.00); Lymphocytes % (A) 11.1 %; MCH 31.6 pg (27.0-32.0); MCHC 31.7 g/dL (32.0-37.0); MCV 99.7 fL (80.0-97.0); Mean Platelet Volume 10.3 fL (9.5-12.2); Monocytes # (A) 0.82 10*3/uL (0.20-1.00); Monocytes % (A) 7.8 %; Neutrophils # (A) 8.46 10*3/uL (1.80-7.70); Neutrophils % (A) 80.2 %; Platelet Count 238 10*3/uL (140-440); RBC 2.94 10*6/uL (4.10-5.20); RDW 12.4 % (11.5-14.5); WBC 10.54 10*3/uL (4.50-10.00)
[2025-01-30 07:10] LABS: African American GFR (CKD) >90 (>60 ml/min/1.73 sqM); Anion Gap 2 mmol/L; Blood Urea Nitrogen 11 mg/dL (7-17); Calcium 8.6 mg/dL (8.4-10.2); Carbon Dioxide 27 mmol/L (22-30); Chloride 107 mmol/L (98-107); Glucose 91 mg/dL (74-99); Non-African American GFR(CKD) 81 (>60 ml/min/1.73 sqM); Potassium 3.5 mmol/L (3.5-5.1); Sodium 136 mmol/L (137-145)
--- NOTE | 2025-01-30 08:36 | P.PCN ---
Date of Procedure: 01/30/25 Operative Findings: The patient is an 84-year-old female patient who underwent yesterday successful stenting of the left internal carotid artery with a good angiographic results from right femoral approach She was seen and evaluated this morning which she is asymptomatic and hemodynamically stable. The right groin is soft and nontender with no bruises. Patient is going to be discharged home and I will follow-up with the patient next week in the office and she will be discharged on dual antiplatelet therapy along with a statin with holding hydralazine giving the marginally low blood pressure
[2025-01-30] MEDS ORDERED: ATORVASTATIN 10 MG TAB PO SCH (09:00)
[2025-01-30] MEDS: MULTIVITAMINS, THERA 1 EACH TAB PO SCH (09:39)
[2025-01-30] MEDS: ASPIRIN 81 MG PO SCH (09:39)
[2025-01-30] MEDS: FUROSEMIDE 40 MG TAB PO SCH (09:42)
--- NOTE | 2025-01-30 09:45 | US ---
EXAMINATION TYPE: US lower ext pseudo artery RT DATE OF EXAM: 01/30/2025 COMPARISON: NONE CLINICAL INDICATION: Female, 84 years old with history of hematoma; Hematoma. Per RN, right groin to check for pseudoaneurysm and hematoma. Pt had recent groin approach for an endarterectomy for carotid . TECHNIQUE:: Grayscale, color Doppler and spectral Doppler imaging performed of the groin, post cardia c catheter to assess for pseudoaneurysm. FINDINGS: SIDE PERFORMED: Right Color and Waveform Doppler performed to assess for the presence of pseudoaneurysm; Is there ultrasound evidence of a pseudoaneurysm: No pseudo seen by ultrasound, although CFV/MID LEVEL PRACTITIONER wer e not well seen, and bifurcations into FV, DFV, FA, and DFA were not visualized. Difficult to evalua te for pseudo. Is there evidence of AV shunting: No Is there a fluid collection present: Complex area seen upper groin: 7.8 x 7.3 x 1.6 cm. No color fl ow seen within, although exam is limited due to great amount of edema. IMPRESSION: 1. No visualized pseudoaneurysm however there is nonvisualization of the vessels as described above. Cannot exclude pseudoaneurysm. 2. Right upper groin 7.8 cm heterogenous fluid collection without internal color flow most consisten t with a hematoma. [facility], , 01/30/2025 9:42 AM
[2025-01-30 12:07] VITALS: BP 97/57; PULSE 70; RESP 16; TEMP 98.1
== END 2025-01-30 12:57 | disposition home or self-care (01) | DRG 36 ==
LOC: 2ORMAIN 06:48 → 3SCARD 14:08
PROVIDERS: ADMIT Internal Medicine Interventional Cardiology; ATTEND Internal Medicine Interventional Cardiology
PROC: B31R1ZZ Fluoroscopy of Intracranial Arteries using Low Osmolar Contrast (ICD-10-PCS; 2025-01-29)
PROC: B41F1ZZ Fluoroscopy of Right Lower Extremity Arteries using Low Osmolar Contrast (ICD-10-PCS; 2025-01-29)
PROC: B3141ZZ Fluoroscopy of Left Common Carotid Artery using Low Osmolar Contrast (ICD-10-PCS; 2025-01-29)
PROC: 5A1223Z Performance of Cardiac Pacing, Continuous (ICD-10-PCS; 2025-01-29)
PROC: B4101ZZ Fluoroscopy of Abdominal Aorta using Low Osmolar Contrast (ICD-10-PCS; 2025-01-29)
PROC: 037J3DZ Dilation of Left Common Carotid Artery with Intraluminal Device, Percutaneous Approach (ICD-10-PCS; principal; 2025-01-29 08:30)
PROC: 037L3DZ Dilation of Left Internal Carotid Artery with Intraluminal Device, Percutaneous Approach (ICD-10-PCS; 2025-01-29 08:30)
PROC: B3171ZZ Fluoroscopy of Left Internal Carotid Artery using Low Osmolar Contrast (ICD-10-PCS; 2025-01-29 08:30)
DX: I65.23 Occlusion and stenosis of bilateral carotid arteries (principal); E78.5 Hyperlipidemia, unspecified; I10 Essential (primary) hypertension; F17.210 Nicotine dependence, cigarettes, uncomplicated; Z86.73 Personal history of transient ischemic attack (TIA), and cerebral infarction without residual deficits; Z88.8 Allergy status to other drugs, medicaments and biological substances; Z88.5 Allergy status to narcotic agent
CPT/HCPCS: 80048; 85025; 86850; 86900; 86901; 93975

== ENCOUNTER 2025-04-23 12:03 | Emergency (ER) | payer MEDICARE ==
[2025-04-23 12:08] VITALS: TEMP 97.4
--- NOTE | 2025-04-23 12:25 | ED ---
Recheck HPI - General Source: patient, RN notes reviewed Mode of arrival: ambulatory Limitations: no limitations <Zenia Bliss - Last Filed: 04/23/25 12:25> - General Source: patient, RN notes reviewed, old records reviewed Mode of arrival: ambulatory Limitations: no limitations - History of Present Illness MD Complaint: other (Elevated blood pressure) -: month(s) Returns Today for: other (Asymptomatic) Symptoms Since Prior Visit: no new symptoms Context: planned re-check Associated Symptoms: none Treatments Prior to Arrival: other (0) <Jeffery Earl - Last Filed: 05/03/25 16:16> - General Chief Complaint: Recheck/Abnormal Lab/Rx Stated Complaint: high blood pressure Time Seen by Provider: 04/23/25 12:11 - History of Present Illness Initial Comments: Quick note: 84-year-old female presented to ER for evaluation of elevated blood pressure. Patient states this has been going on since February. She has followed up with PCP. Patient denies any headache. (Zenia Bliss) This is a 84-year-old female to ER for elevated blood pressure. Patient has had been having blood pressure issues for a few months now following up with primary care without improvement in symptoms. Patient is concerned for elevated blood pressure readings at home (Jeffery Earl) - Related Data Home Medications Medication Instructions Recorded Confirmed Omeprazole [PriLOSEC] 20 mg PO DAILY 09/12/15 04/23/25 ALPRAZolam [Xanax] 0.5 mg PO TID PRN 02/17/22 04/23/25 Furosemide [Lasix] 40 mg PO DAILY 02/17/22 04/23/25 Atorvastatin [Lipitor] 40 mg PO BID 04/23/25 04/23/25 Clopidogrel [Plavix] 75 mg PO DAILY 04/23/25 04/23/25 hydrALAZINE HCL [Apresoline] 25 mg PO QID 04/23/25 04/23/25 Previous Rx's Medication Instructions Recorded amLODIPine [Norvasc] 2.5 mg PO DAILY #60 tablet 04/23/25 lisinopriL [Zestril] 10 mg PO DAILY #60 tab 04/23/25 Allergies Allergy/AdvReac Type Severity Reaction Status Date / Time losartan Allergy Anaphylaxis Verified 04/23/25 17:08 [email or web address] Allergy Anaphylaxis Verified 04/23/25 17:08 adhesive tape AdvReac Rash/Hives Verified 04/23/25 17:08 codeine AdvReac Vomiting Verified 04/23/25 17:08 [place] Allergy Anaphylaxis Uncoded 04/23/25 17:08 Review of Systems ROS Other: All systems not noted in ROS Statement are negative. <Zenia Bliss - Last Filed: 04/23/25 12:25> ROS Other: All systems not noted in ROS Statement are negative. <Jeffery Earl - Last Filed: 05/03/25 16:16> ROS Statement: Those systems with pertinent positive or pertinent negative responses have been documented in the HPI. 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 misty cataracts Past Anesthesia/Blood Transfusion Reactions: No Reported Reaction Past Psychological History: Anxiety Smoking Status: Former smoker - Past Family History Mother Family Medical History: Cancer Son(s) Family Medical History: Cancer <Zenia Bliss - Last Filed: 04/23/25 12:25> General Exam Limitations: no limitations <Zenia Bliss - Last Filed: 04/23/25 12:25> General appearance: alert, in no apparent distress Head exam: Present: atraumatic, normocephalic, normal inspection Eye exam: Present: normal appearance, PERRL, EOMI. Absent: scleral icterus, conjunctival injection, periorbital swelling ENT exam: Present: normal exam, mucous membranes moist Neck exam: Present: normal inspection. Absent: tenderness, meningismus, lymphadenopathy Respiratory exam: Present: normal lung sounds bilaterally. Absent: respiratory distress, wheezes, rales, rhonchi, stridor Cardiovascular Exam: Present: regular rate, normal rhythm, normal heart sounds. Absent: systolic murmur, diastolic murmur, rubs, gallop, clicks GI/Abdominal exam: Present: soft, normal bowel sounds. Absent: distended, tenderness, guarding, rebound, rigid Extremities exam: Present: normal inspection, full ROM, normal capillary refill. Absent: tenderness, pedal edema, joint swelling, calf tenderness Back exam: Present: normal inspection Neurological exam: Present: alert, oriented X3, CN II-XII intact Psychiatric exam: Present: normal affect, normal mood Skin exam: Present: warm, dry, intact, normal color. Absent: rash <Jeffery Earl - Last Filed: 05/03/25 16:16> - General Exam Comments Initial Comments: Visual Physical Exam Vital signs reviewed General: Well-appearing, nontoxic, no acute distress. Head: Normocephalic, atraumatic Eyes: PERRLA, EOMI ENT: Airway patent Chest: Nonlabored breathing Skin: No visual rash, normal skin tone Neuro: Alert and oriented 3 Musculoskeletal: No gross abnormalities (Zenia Bliss) Course <Jeffery Earl - Last Filed: 05/03/25 16:16> Vital Signs 04/23/25 04/23/25 04/23/25 12:05 15:46 16:38 Temperature 97.4 F L Pulse Rate 86 81 78 Respiratory 20 19 18 Rate Blood Pressure 165/78 171/94 179/87 O2 Sat by Pulse 98 97 98 Oximetry 04/23/25 17:51 Temperature Pulse Rate 66 Respiratory 18 Rate Blood Pressure 149/71 O2 Sat by Pulse 98 Oximetry - Reevaluation(s) Reevaluation #1: Medical records reviewed (Jeffery Earl) Reevaluation #2: Patient symptoms unchanged no symptoms (Jeffery Earl) Reevaluation #3: Patient informed of results questions answered (Jeffery Earl) Reevaluation #4: Was pt. sent in by a medical professional or institution (, PA, MEDICAL SALES REPRESENTATIVE, urgent care, hospital, or longterm...) When possible be specific @ -no Did you speak to anyone other than the patient for history (EMS, parent, family, police, friend...)? What history was obtained from this source @ -no Did you review nursing and triage notes (agree or disagree)? Why? @ -agree Are old charts reviewed (outside hosp., previous admission, EMS record, old EKG, old radiological studies, urgent care reports/EKG's, longterm records)? Rep ort findings @ -yes Differential Diagnosis (chest pain, altered mental status, abdominal pain women, abdominal pain men, vaginal bleeding, weakness, fever, dyspnea, syncope, headache, dizziness, GI bleed, back pain, seizure, CVA, palpatations, mental health, musculoskeletal)? @ -prior EKG interpreted by me (3pts min.). @ -no X-rays interpreted by me (1pt min.). @ -no CT interpreted by me (1pt min.). @ -no U/S interpreted by me (1pt. min.). @ -no What testing was considered but not performed or refused? (CT, X-rays, U/S, labs)? Why? @ -none What meds were considered but not given or refused? Why? @ -none Did you discuss the management of the patient with other professionals (professionals i.e. , PA, MEDICAL SALES REPRESENTATIVE, lab, RT, psych nurse, secondary social studies teacher, military aircraft designer, teacher, defence force senior officer, case maker)? Give summary @ -no Was smoking cessation discussed for >3mins.? @ -no Was critical care preformed (if so, how long)? @ -no Were there social determinants of health that impacted care today? How? (Homelessness, low income, unemployed, alcoholism, drug addiction, transportation, low edu. Level, literacy, decrease access to med. care, retirement, rehab)? @ -none Was there de-escalation of care discussed even if they declined (Discuss DNR or withdrawal of care, Hospice)? DNR status @ -no What co-morbidities impacted this encounter? (DM, HTN, Smoking, COPD, CAD, Cancer, CVA, ARF, Chemo, Hep., AIDS, mental health diagnosis, sleep apnea, morbid obesity)? @ -none Was patient admitted / discharged? Hospital course, mention meds given and route, prescriptions, significant lab abnormalities, going to OR and other pertinent info. @ - 84 female for evaluation of hypertension. Patient is given better blood pressure control and parameters, better plan for blood pressure control feels well can be discharged home Discharge Undiagnosed new problem with uncertain prognosis? @ -no Drug Therapy requiring intensive monitoring for toxicity (Heparin, Nitro, Insulin, Cardizem)? @ -no Were any procedures done? @ -no Diagnosis/symptom? @ -Hypertension uncontrolled Acute, or Chronic, or Acute on Chronic? @ -Acute Uncomplicated (without systemic symptoms) or Complicated (systemic symptoms)? @ -Complicated Side effects of treatment? @ -no Exacerbation, Progression, or Severe Exacerbation? @ -exacerbation Poses a threat to life or bodily function? How? (Chest pain, [place], [place], pneumonia, PE, COPD, DKA, ARF, appy, cholecystitis, CVA, Diverticulitis, Homicidal, Suicidal, threat to staff... and all critical care pts) @ -yes abnormal vital sign (Jeffery Earl) Reevaluation #5: Differential Weakness: Hypoglycemia, shock, sepsis, hyponatremia, anemia, infection, [place], ETOH, adverse medicine reaction, overdose, stroke, this is not meant to be an all-inclusive list. (Jeffery Earl) Medical Decision Making <Zenia Bliss - Last Filed: 04/23/25 12:25> <Jeffery Earl - Last Filed: 05/03/25 16:16> - Medical Decision Making I performed the quick note portion of this chart. Electronically signed by Zenia Bliss PA-C (Zenia Bliss) 84 female for evaluation of hypertension. Patient is given better blood pressure control and parameters, better plan for blood pressure control feels well can be discharged home (Jeffery Earl) - Lab Data Lab Results 04/23/25 Range/Units 13:48 Urine Color Colorless Urine Appearance Clear (Clear) Urine pH 7.0 (5.0-8.0) Ur Specific [place] 1.005 (1.001-1.035) Urine Protein Negative (Negative) Urine Glucose (UA) Negative (Negative) Urine Ketones Negative (Negative) Urine Blood Negative (Negative) Urine Nitrite Negative (Negative) Urine Bilirubin Negative (Negative) Urine Urobilinogen <2.0 (<2.0) mg/dL Ur Leukocyte Esterase Negative (Negative) Disposition <Zenia Bliss - Last Filed: 04/23/25 12:25> Is patient prescribed a controlled substance at d/c from ED?: No Time of Disposition: 17:30 <Jeffery Earl - Last Filed: 05/03/25 16:16> Clinical Impression: Hypertension Disposition: HOME SELF-CARE Condition: Fair Instructions (If sedation given, give patient instructions): Hypertension (ED) Prescriptions: amLODIPine [Norvasc] 2.5 mg PO DAILY #60 tablet lisinopriL [Zestril] 10 mg PO DAILY #60 tab Referrals: Kalin Rodriguez MD [Primary Care Provider] - 1-2 days
[2025-04-23 14:12] LABS: Bilirubin,Urine Negative (Negative); Blood,Urine Negative (Negative); Color,Urine Colorless; Glucose,Urine (UA) Negative (Negative); Ketones,Urine Negative (Negative); Leukocyte Esterase,Urine Negative (Negative); Nitrite,Urine Negative (Negative); PH, Urine 7.0 (5.0-8.0); Protein,Urine Negative (Negative); Specific Gravity,Urine 1.005 (1.001-1.035); Urobilinogen,Urine <2.0 mg/dL (<2.0)
[2025-04-23 16:39] VITALS: RESP 18
[2025-04-23] MEDS: LABETALOL 5 MG/ML VIAL MDV IVP STA (17:01)
[2025-04-23 17:54] VITALS: BP 149/71; PULSE 66
[2025-04-23] MEDS: SODIUM CHLORIDE 0.9% 500 ML 500 ML IV ONE (17:54)
== END 2025-04-23 18:10 | disposition home or self-care (01) ==
LOC: EC 12:03
DX: I10 Essential (primary) hypertension (principal); Z87.891 Personal history of nicotine dependence; Z88.5 Allergy status to narcotic agent; Z88.8 Allergy status to other drugs, medicaments and biological substances; Z88.6 Allergy status to analgesic agent
CPT/HCPCS: 81003; 99283; 96374; J1920